=== PATIENT | female | born 1985 | race American Indian/Alaskan Native ===

== ENCOUNTER 2017-05-18 16:00 | Emergency (ER) | payer SELFPAY ==
[2017-05-18] MEDS ORDERED: PROVENTIL IH ONE (16:37)
[2017-05-18] MEDS ORDERED: ZOFRAN ODT PO ONE (16:38)
[2017-05-18] MEDS ORDERED: DELTASONE ONE (16:47)
[2017-05-18] MEDS ORDERED: DELTASONE PO ONE (16:51)
[2017-05-18 17:27] LABS: Hematocrit 39.2 % (30.3-42.9); Hemoglobin 13.4 gm/dl (10.1-14.3); Mean Corpuscular HGB Conc 34 % (30-34); Mean Corpuscular Hemoglobin 31 pg (28-32); Mean Corpuscular Volume 92 fl (79-97); Platelet Count 274 K/mm3 (140-440); Red Blood Count 4.27 M/mm3 (3.65-5.03); Red Cell Distribution Width 14.9 % (13.2-15.2)
[2017-05-18 17:38] LABS: BUN/Creatinine Ratio 17; Blood Urea Nitrogen 10 mg/dL (7-17); Calcium 9.3 mg/dL (8.4-10.2); Hemolysis Index 12
--- NOTE | 2017-05-18 19:02 | Emergency Department Report ---
Upper Respiratory HPI - HPI Chief Complaint: Adult Asthma Stated Complaint: ASTHMA Time Seen by Provider: 05/18/17 18:53 Duration: 3 Days URI Symptoms: Rhinorrhea: Yes, Sore Throat: Yes, Ear Pain: Yes, Cough: Yes, Shortness of Breath: No, Sick Contacts: Yes, Unable to Take Fluids: No, Urine Output Abnormal: No, Listless Behavior: No - Home Meds and Allergies Home Medications: Previous Rx's Medication Instructions Recorded Last Taken Type ALBUTEROL Inhaler [ProAir HFA 2 puff IH QID PRN #1 inhalation 05/18/17 Unknown Rx Inhaler] Acetaminophen 1,000 mg PO QID #30 tablet 05/18/17 Unknown Rx Azithromycin [Zithromax Z-PURNIMA] 250 mg PO DAILY #6 tablet 05/18/17 Unknown Rx Loratadine 10 mg PO DAILY #30 tablet 05/18/17 Unknown Rx predniSONE [Deltasone] 40 mg PO QDAY #10 tab 05/18/17 Unknown Rx Allergies/Adverse Reactions: Allergies Allergy/AdvReac Type Severity Reaction Status Date / Time No Known Allergies Allergy Unverified 05/18/17 16:36 ED Review of Systems ROS: Stated complaint: ASTHMA Other details as noted in HPI Constitutional: denies: chills, fever Eyes: denies: eye pain, eye discharge, vision change ENT: ear pain, throat pain, congestion Respiratory: cough, wheezing. denies: shortness of breath Cardiovascular: denies: chest pain, palpitations Endocrine: no symptoms reported Gastrointestinal: denies: abdominal pain, nausea, diarrhea Genitourinary: denies: urgency, dysuria, discharge Musculoskeletal: denies: back pain, joint swelling, arthralgia Skin: denies: rash, lesions Neurological: denies: headache, weakness, paresthesias Psychiatric: denies: anxiety, depression Hematological/Lymphatic: denies: easy bleeding, easy bruising ED Past Medical Hx - Past Medical History Hx Asthma: Yes - Social History Smoking Status: Never Smoker Substance Use Type: None - Medications Home Medications: Home Medications Medication Instructions Recorded Confirmed Last Taken Type ALBUTEROL Inhaler [ProAir HFA 2 puff IH QID PRN #1 inhalation 05/18/17 Unknown Rx Inhaler] Acetaminophen 1,000 mg PO QID #30 tablet 05/18/17 Unknown Rx Azithromycin [Zithromax Z-PURNIMA] 250 mg PO DAILY #6 tablet 05/18/17 Unknown Rx Loratadine 10 mg PO DAILY #30 tablet 05/18/17 Unknown Rx predniSONE [Deltasone] 40 mg PO QDAY #10 tab 05/18/17 Unknown Rx ED Bronchiolitis Physical Exam - Exam General: Vital signs noted. No distress. Alert and acting appropriately. HEENT: Yes Pharyngeal Erythema, Yes Rhinorrhea, No Conjuctival Injection, No Dry Mucous Membranes Ear: Both TM Erythema, Neither TM Bulge, Neither EAC Discharge Neck: No Adenopathy, No Rigidity Lungs: Yes Clear Lung Sounds, Yes Good Air Exchange, Yes Cough, No Wheezes, No Stridor, No Nasal Flaring, No Retractions Heart: Yes Regular, No Murmur Abdomen: Yes Normal Bowel Sounds, No Tenderness, No Peritoneal Signs Skin: No Rash, No Eczema Neurologic: Alert and oriented, no deficits. Musculoskeletal: Unremarkable. Treatments - Treaments Treatment: Improved Albuterol ED Physical Exam - General Limitations: No Limitations ED Course Vital Signs 05/18/17 16:33 Temperature 98.5 F Pulse Rate 119 H Respiratory 26 H Rate Blood Pressure 161/79 O2 Sat by Pulse 100 Oximetry ED Medical Decision Making - Lab Data Result diagrams: 05/18/17 17:10 05/18/17 17:10 - Medical Decision Making Patient is a 32-year-old -[place] female with history of asthma patient states out of albuterol for last 2 months arrived [place] the [place] 2 weeks ago cough and congestion started at that time now with rhinorrhea cough congestion and nocturnal wheezing there is no fever no chills no nausea vomiting patient states breathing improved after nebs and steroids given in ED patient ambulatory throughout ED without increased shortness of breath or wheezing plan to DC to self in stable condition refill albuterol prednisone taper Z-Purnima and follow with PCP in 2-3 days patient given strict instructions to return to ED if symptoms worsen patient verbalizes understanding and agreement with discharge plan. repeat vital signs at this time : 98. 7 t, r: 18, bp: 124/78, O2 sat: 98% Critical care attestation.: If time is entered above; I have spent that time in minutes in the direct care of this critically ill patient, excluding procedure time. ED Disposition Clinical Impression: Bronchitis Disposition: DC-01 TO HOME OR SELFCARE Is pt being admited?: No Does the pt Need Aspirin: No Condition: Good Instructions: Chronic Bronchitis (ED) Prescriptions: Acetaminophen 1,000 mg PO QID #30 tablet ALBUTEROL Inhaler [ProAir HFA Inhaler] 2 puff IH QID PRN #1 inhalation PRN Reason: Shortness Of Breath Azithromycin [Zithromax Z-PURNIMA] 250 mg PO DAILY #6 tablet Loratadine 10 mg PO DAILY #30 tablet predniSONE [Deltasone] 40 mg PO QDAY #10 tab Referrals: STEVEN NUR MD [Staff Physician] - 3-5 Days Forms: Work/School Release Form(ED) Time of Disposition: 19:45
[2017-05-19 01:11] VITALS: BP 124/78
== END 2017-05-18 19:50 | disposition home or self-care (01) ==
LOC: ED 16:00
DX: J42 Unspecified chronic bronchitis (principal); Z79.899 Other long term (current) drug therapy
CPT/HCPCS: 36415; 80048; 85027; 99283; J7512; Q0162

== ENCOUNTER 2017-12-04 09:48 | Inpatient (IN) | payer MEDICAID ==
[2017-12-04] MEDS ORDERED: LACTATED RINGERS 1,000 ML ONE (10:24)
[2017-12-04] MEDS ORDERED: ePHEDrine SULFATE IV PRN (10:28)
[2017-12-04] MEDS ORDERED: BRETHINE SUB-Q PRN (10:28)
--- NOTE | 2017-12-04 10:44 | History and Physical Report ---
History of Present Illness Date of examination: 12/04/17 Date of admission: 12/04/17 10:19 Chief complaint: Labor History of present illness: 32 year old presents to L&D in active labor. Patient states her contractions began at 06:00 this morning. Patient denies VB or LOF. Patient reports active movement. Patient denies complications with this . She states she has been receiving care at [place]; no records are available. Pt. states she has had 3 previous vaginal deliveries and a miscarriage. EDC 12/05/17 ; EGA 39 weeks, 6 days gestation. Patient denies health problems except for asthma for which she rarely uses an inhaler. labs drawn today upon admission. 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 denies: gonorrhea, hepatitis B, hepatitis C, herpes, HIV, syphilis Family/Genetic History: diabetes, hypertension, cancer Social history: lives with family, full code. denies: smoking, alcohol abuse, prescription drug abuse, IV drug use - Obstetrical History Expected Date of Delivery: 12/05/17 Actual Gestation: 39 Week(s) 6 Day(s) : 5 Para: 3 Hx # Term Pregnancies: 4 Number of Pregnancies: 0 Spontaneous Abortions: 1 Induced : 0 Number of Living Children: 3 Medications and Allergies Allergies Allergy/AdvReac Type Severity Reaction Status Date / Time No Known Allergies Allergy Unverified 05/18/17 16:36 Home Medications Medication Instructions Recorded Confirmed Last Taken Type ALBUTEROL Inhaler [ProAir HFA 2 puff IH QID PRN #1 inhalation 05/18/17 Unknown Rx Inhaler] Acetaminophen 1,000 mg PO QID #30 tablet 05/18/17 Unknown Rx Azithromycin [Zithromax Z-PURNIMA] 250 mg PO DAILY #6 tablet 05/18/17 Unknown Rx Loratadine 10 mg PO DAILY #30 tablet 05/18/17 Unknown Rx predniSONE [Deltasone] 40 mg PO QDAY #10 tab 05/18/17 Unknown Rx Active Meds: Active Medications Ephedrine Sulfate (Ephedrine Sulfate) 10 mg IV Q2M PRN PRN Reason: Hypotension Fentanyl (Sublimaze) 100 mcg IV Q2H PRN PRN Reason: Labor Pain Ampicillin Sodium (Polycillin/Ns 2 Gm/100 Ml) 2 gm in 100 mls @ 100 mls/hr IV ONCE ONE; Protocol Stop: 12/04/17 11:27 Lactated Ringer's (Lactated Ringers) 1,000 mls @ 125 mls/hr IV DIRECT JR Oxytocin/Sodium Chloride (Pitocin/Ns 20 Unit/1000ml Drip) 20 units in 1,000 mls @ 125 mls/hr IV DIRECT JR Ampicillin Sodium (Ampicillin/Ns 1 Gm/50 Ml) 1 gm in 50 mls @ 100 mls/hr IV Q4HR JR; Protocol Terbutaline Sulfate (Brethine) 0.25 mg SUB-Q ONCE PRN PRN Reason: Hyperstimulation/Hypertonicity Review of Systems All systems: negative (labor) - Vital Signs Vital signs: Vital Signs Temp Resp 98.7 F 18 12/04/17 10:16 12/04/17 10:16 Temp Pulse Resp BP Pulse Ox 97.4 F L 75 18 133/83 94 12/04/17 10:38 12/04/17 10:42 12/04/17 10:38 12/04/17 10:42 12/04/17 10:39 - Physical Exam Breasts: Positive: deferred Cardiovascular: Regular rate, Normal S1, Normal S2 Lungs: Positive: Clear to auscultation Abdomen: Positive: normal appearance, soft. Negative: tenderness, guarding, rigidity Vagina: Positive: normal moisture Cervix: Positive: other (5/80/-2) Uterus: Positive: enlarged. Negative: tender Anus/Rectum: Positive: normal perianal skin Extremities: Positive: normal. Negative: tenderness, edema - Obstetrical FHR: category 1 Uterine Contraction Monitor Mode: External Cervical Dilatation: 5 Cervical Effacement Percentage: 80 station: -2 Uterine Contraction Pattern: Regular Uterine Contraction Intensity: Moderate Results All other labs normal. Assessment and Plan A: at 39 weeks, 6 days gestation. Active labor. Unknown GBS. P: GBS prophylaxis. Anticipate . Zithromax 1 gram to treat chlamydia.
[2017-12-04] MEDS ORDERED: PITOCin/NS 20 UNIT/1000ML DRIP 20 UNITS/1,000 ML BAG IV SCH (11:00)
[2017-12-04] MEDS ORDERED: LACTATED RINGERS 1,000 ML IV SCH (11:00)
[2017-12-04] MEDS ORDERED: POLYCILLIN/NS 2 GM/100 ML 2 GM/100 ML BAG IV ONE (11:00)
[2017-12-04] MEDS: SUBLIMAZE IV PRN ×2 (11:08→13:26)
[2017-12-04 11:10] LABS: Hematocrit 33.4 % (30.3-42.9); Mean Corpuscular HGB Conc 36 % (30-34); Mean Corpuscular Hemoglobin 31 pg (28-32); Mean Corpuscular Volume 85 fl (79-97); Platelet Count 295 K/mm3 (140-440); Red Blood Count 3.92 M/mm3 (3.65-5.03); Red Cell Distribution Width 16.1 % (13.2-15.2)
[2017-12-04 11:34] LABS: Rubella IgG Antibody Immune (Immune)
[2017-12-04] MEDS ORDERED: ZITHROMAX 1,000 MG in NACL 0.9% 250ML 250 ML IV ONE (12:00)
[2017-12-04 12:38] LABS: Hepatitis C Virus Antibody Non-Reactive (NonReactive)
[2017-12-04] MEDS ORDERED: ZOFRAN IV PRN ×2 (13:32→16:06)
[2017-12-04] MEDS ORDERED: AMPICILLIN/NS 1 GM/50 ML 1 GM/50 ML BAG IV SCH (15:00)
[2017-12-04] MEDS ORDERED: MILK OF MAGNESIA PO PRN (16:06)
[2017-12-04] MEDS ORDERED: PHENERGAN PR PRN (16:06)
[2017-12-04] MEDS ORDERED: TUCKS PAD TP PRN (16:06)
[2017-12-04] MEDS ORDERED: PHENERGAN PO PRN (16:06)
[2017-12-04] MEDS ORDERED: LANSINOH TP PRN (16:06)
[2017-12-04] MEDS ORDERED: DULCOLAX PR PRN (16:06)
[2017-12-04] MEDS ORDERED: BENADRYL PO PRN (16:06)
--- NOTE | 2017-12-04 16:15 | Procedure Note ---
OB Delivery Note - Delivery Date of Delivery: 12/04/17 Surgeon: ROSMERY ALBRIGHT Estimated blood loss: 300cc - Vaginal Delivery presentation: vertex Delivery position: OA Intrapartum events: shoulder dystocia Delivery induction: none Delivery augmentation: rupture of membranes Delivery monitor: external FHT, external uterine Route of delivery: Delivery placenta: spontaneous Delivery cord: 3 umbilical vessels Episiotomy: none Delivery laceration: none Anesthesia: none Delivery comments: of liveborn male TRAV over intact perineum weighing 8 lb 15 oz with apgars of 7/9. Turtle sign noted upon delivery of head at 15:03. Left anterior shoulder dystocia noted. Immediately called for additional help including retail sales professional and NICU as well as additional nurses. Juan position instituted and delivery of posterior shoulder was accomplished with resolution of shoulder dystocia at 15:05. Baby taken immediately to radiant warmer where blow by oxygen was given and baby was assessed by NICU team. Spontaneous delivery of intact placenta and membranes by sears mechanism. EBL 300 cc. Pitocin to IV fluids after delivery of placenta. Fundus firm and midline. Vaginal sweep negative. No lacerations noted. Sponge count correct. Mother and baby stable in birthing room. Patient plans to breastfeed.
[2017-12-04] MEDS ORDERED: SODIUM CHLORIDE FLUSH SYRINGE 10 ML IV NR (17:00)
[2017-12-04] MEDS: MOTRIN PO SCH (22:20)
[2017-12-05 08:29] LABS: Hematocrit 31.1 % (30.3-42.9); Hemoglobin 10.3 gm/dl (10.1-14.3)
--- NOTE | 2017-12-05 08:49 | Progress Note ---
Assessment and Plan A: day 1 S/P . Anemia. P: Supplement with iron. Anticipate discharge tomorrow. Subjective - Subjective Date of service: 12/05/17 Principal diagnosis: day 1 S/P Interval history: day 1 S/P . Patient is doing well. She reports small amount of lochia. She denies pain. Patient is voiding without difficulty. She is ambulating well. She is tolerating a regular diet. Patient denies headache, cough, shortness of breath, abdominal pain, leg pain, heavy vaginal bleeding, or any other symptoms. Patient wants to use Depo Provera for contraception at hospital discharge. She states she has used this method in the past without adverse effects. Patient reports: appetite normal, voiding normally, pain well controlled, ambulating normally [place]: doing well Objective - Vital Signs Latest vital signs: Vital Signs Temp Pulse Resp BP BP Pulse Ox 12/05/17 01:15 98.3 F 46 L 20 128/73 97 12/04/17 21:30 98.7 F 56 L 20 117/60 99 12/04/17 17:53 98.1 F 62 18 116/88 12/04/17 16:40 75 18 134/70 12/04/17 16:39 75 134/70 12/04/17 16:25 67 18 132/70 12/04/17 16:24 67 132/70 12/04/17 16:10 58 L 18 126/67 12/04/17 16:09 58 L 126/67 12/04/17 15:55 75 18 129/81 129/81 12/04/17 15:40 72 18 122/60 12/04/17 15:39 72 122/60 18 15:25 78 97 12/04/17 15:24 77 123/59 12/04/17 15:20 97.4 F L 77 18 123/59 97 12/04/17 14:55 81 86 12/04/17 14:54 78 L 12/04/17 14:50 76 99 12/04/17 14:48 94 H 89 12/04/17 14:45 75 97 12/04/17 14:40 93 H 98 12/04/17 14:38 81 94 12/04/17 14:35 81 92 12/04/17 14:33 94 H 92 07/21/18 14:30 95 H 95 18 14:25 74 92 0718 14:20 80 93 0718 14:15 87 92 18 14:14 75 92 0718 14:10 75 95 0718 14:08 89 92 18 14:05 70 94 18 14:01 78 93 12/04/17 14:00 86 98 12/04/17 13:55 76 91 18 13:50 75 99 18 13:49 73 94 18 13:45 83 92 18 13:42 81 91 18 13:40 91 H 92 12/04/17 13:36 95 H 94 12/04/17 13:35 102 H 95 18 13:30 72 94 18 13:28 70 97 18 13:26 18 12/04/17 13:23 74 96 12/04/17 13:18 82 100 12/04/17 13:13 78 99 18 13:12 86 84 12/04/17 13:08 83 98 18 13:03 79 98 18 12:58 76 98 18 12:53 79 133/72 98 18 12:52 107 H 86 18 12:51 96.8 F L 73 18 133/72 100 18 12:48 92 H 99 12/04/17 12:44 73 94 18 12:43 82 99 18 12:38 96 H 96 18 12:33 109 H 97 18 12:32 85 93 18 12:28 75 95 18 12:23 87 96 18 12:22 72 91 18 12:18 69 97 18 12:14 71 94 18 12:13 69 98 18 12:09 67 94 18 12:08 68 95 18 12:03 66 132/67 95 18 12:02 72 94 12/04/17 11:59 97.0 F L 64 18 132/67 96 12/04/17 11:58 67 95 12/04/17 11:53 77 95 12/04/17 11:48 82 97 12/04/17 11:43 102 H 97 12/04/17 11:38 86 94 12/04/17 11:37 72 94 12/04/17 11:33 77 92 12/04/17 11:30 86 93 12/04/17 11:28 71 96 12/04/17 11:24 77 92 12/04/17 11:23 81 95 12/04/17 11:18 84 95 12/04/17 11:13 90 95 12/04/17 11:08 73 18 98 12/04/17 11:03 76 100 12/04/17 10:58 88 96 12/04/17 10:53 90 96 12/04/17 10:49 75 91 12/04/17 10:48 68 99 12/04/17 10:43 75 97 12/04/17 10:42 75 133/83 12/04/17 10:39 82 94 12/04/17 10:38 97.4 F L 75 18 133/83 97 12/04/17 10:16 98.7 F 18 Intake and Output 12/04/17 12/05/17 12/05/17 23:59 07:59 15:59 Intake Total 240 480 Output Total 600 500 Balance -360 -20 Intake: Oral 240 480 Output: Urine 600 500 Void 600 500 Other: Total, Intake Amount 240 240 Total, Output Amount 600 500 # Voids Void 1 - Exam Breasts: Present: deferred Cardiovascular: Present: Regular rate, Normal S1, Normal S2 Lungs: Present: Clear to auscultation Abdomen: Present: normal appearance, soft, normal bowel sounds. Absent: distention, tenderness, guarding, rigidity Uterus: Present: normal, firm, fundal height below umbilicus. Absent: bogginess , tenderness Extremities: Present: normal. Absent: tenderness, edema - Labs Labs: Abnormal lab results 12/04/17 12/04/17 Range/Units 10:45 10:45 WBC 11.3 H (4.5-11.0) K/mm3 MCHC 36 H (30-34) % RDW 16.1 H (13.2-15.2) % Crossmatch See Detail
[2017-12-05] MEDS: FEOSOL PO SCH ×2 (10:00→21:51)
[2017-12-05] MEDS ORDERED: ZITHROMAX PO ONE (11:00)
[2017-12-05] MEDS ORDERED: PNEUMOVAX 23 IM ONE (12:00)
[2017-12-05] MEDS: MOTRIN PO SCH ×3 (12:00→23:40)
[2017-12-05] MEDS: TYLENOL PO PRN (16:22)
[2017-12-06] MEDS ORDERED: BOOSTRIX IM ONE (06:00)
[2017-12-06] MEDS: MOTRIN PO SCH (06:10)
--- NOTE | 2017-12-06 07:39 | Progress Note ---
Assessment and Plan A: day 2. Anemia. P: Discharge patient home today. Discussed with patient discharge instructions and warning signs. Patient to receive Depo Provera 150 mg IM prior to hospital discharge. The following Rx were [email or web address] [place]: Motrin 800 mg, #30, 1 po every 8 hours prn pain, 0 RF; Vitamin, #30, 1 po daily, 6 RF; Ferrous Sulfate 325 mg, #60, 1 po BID, 1 RF; Colace 100 mg, #60, 1 po BID prn, 1 RF. Advised patient to follow up with [facility] in 6 weeks for exam. Pt. voiced understanding. Subjective - Subjective Principal diagnosis: day 2 S/P Interval history: day 2 S/P . Patient is doing well. She reports small amount of lochia. Patient is voiding without difficulty. She is ambulating well. She is tolerating a regular diet without nausea or vomiting. Patient denies headache, cough, shortness of breath, chest pain, abdominal pain , leg pain, heavy vaginal bleeding, depression, or any other symptoms. Patient wants to use Depo Provera for contraception at hospital discharge. She states she has used this method in the past without adverse effects. Patient reports: appetite normal, voiding normally, pain well controlled, ambulating normally [place]: doing well Objective - Vital Signs Latest vital signs: Vital Signs Temp Pulse Resp BP 12/06/17 00:05 98.2 F 68 18 109/61 12/05/17 18:05 18 12/05/17 17:03 98.5 F 63 18 115/65 12/05/17 16:22 18 12/05/17 12:00 98.7 F 64 18 92/48 12/05/17 08:00 98.5 F 60 20 116/66 Intake and Output 12/05/17 12/05/17 12/06/17 15:59 23:59 07:59 Intake Total 360 120 360 Output Total 1450 Balance 360 -1330 360 Intake: Oral 360 120 360 Output: Urine 1450 Void 1450 Other: Total, Intake Amount 120 120 360 Total, Output Amount 900 # Voids Void 1 3 - Exam Cardiovascular: Present: Regular rate, Normal S1, Normal S2, No murmurs Lungs: Present: Clear to auscultation Abdomen: Present: normal appearance, soft. Absent: distention, tenderness, guarding, rigidity Uterus: Present: normal, firm, fundal height below umbilicus. Absent: bogginess , tenderness Extremities: Present: normal. Absent: tenderness, edema
--- NOTE | 2017-12-06 07:43 | Discharge Summary ---
Providers - Providers Date of Admission: 12/04/17 10:19 Date of discharge: 12/06/17 Attending physician: Dr. Olson None Primary care physician: Dr. Ginny Jerome Hospitalization Reason for admission: active labor Delivery: Episiotomy: none Laceration: none Other procedures: none complications: none Discharge diagnosis: IUP at term delivered [place] baby: male Pertinent studies: Labs Hospital course: Normal course Condition at discharge: Good Disposition: DC-01 TO HOME OR SELFCARE Plan - Provider Discharge Summary Activity: routine, no sex for 6 weeks, no heavy lifting 4 weeks, no strenuous exercise Diet: routine Instructions: routine Additional instructions: Call your doctor immediately for: * Fever > 100.5 * Heavy vaginal bleeding ( >1 pad per hour) * Severe persistent headache * Shortness of breath * Reddened, hot, painful area to leg or breast - Follow up plan Follow up: MAXIM BURRIS MD [Primary Care Provider] - 6 Weeks
[2017-12-06] MEDS ORDERED: DEPO-PROVERA (CONTRACEPTION) IM NR (08:00)
[2017-12-06 09:24] VITALS: BP 99/54
[2017-12-06] MEDS: FEOSOL PO SCH (09:57)
[2017-12-06] MEDS: TYLENOL PO PRN (09:57)
== END 2017-12-06 11:40 | disposition home or self-care (01) | DRG 774 ==
LOC: TRG 09:48 → LD 10:19 → OB 17:10
PROVIDERS: ADMIT Obstetrics & Gynecology; ATTEND Obstetrics & Gynecology
PROC: 10E0XZZ Delivery of Products of Conception, External Approach (ICD-10-PCS; principal; 2017-12-04)
PROC: 3E0234Z Introduction of Serum, Toxoid and Vaccine into Muscle, Percutaneous Approach (ICD-10-PCS; 2017-12-05)
DX: O66.0 Obstructed labor due to shoulder dystocia (principal); O98.82 Other maternal infectious and parasitic diseases complicating childbirth; O99.52 Diseases of the respiratory system complicating childbirth; Z3A.39 39 weeks gestation of pregnancy; Z37.0 Single live birth; Z23 Encounter for immunization; J45.909 Unspecified asthma, uncomplicated; Z83.3 Family history of diabetes mellitus; Z82.49 Family history of ischemic heart disease and other diseases of the circulatory system; Z80.9 Family history of malignant neoplasm, unspecified; O99.02 Anemia complicating childbirth; D64.9 Anemia, unspecified
CPT/HCPCS: 36415; 83036; 85014; 85018; 85027; 86592; 86706; 86762; 86803; 86850; 86870; 86900; 86901; 87806; 90715; A6250; J0290; J0456; J1050; J2405; J2590; J3010; J7050; J7120

== ENCOUNTER 2017-12-13 04:39 | Emergency (ER) | payer MEDICAID ==
[2017-12-13 05:24] LABS: Basophils % (Auto) 0.5 % (0.0-1.8); Eosinophils # (Auto) 0.2 K/mm3 (0.0-0.4); Eosinophils % (Auto) 3.7 % (0.0-4.3); Hematocrit 38.8 % (30.3-42.9); Hemoglobin 12.8 gm/dl (10.1-14.3); Lymphocytes # (Auto) 2.4 K/mm3 (1.2-5.4); Lymphocytes % (Auto) 41.1 % (13.4-35.0); Mean Corpuscular HGB Conc 33 % (30-34); Mean Corpuscular Hemoglobin 29 pg (28-32); Mean Corpuscular Volume 88 fl (79-97); Monocytes # (Auto) 0.5 K/mm3 (0.0-0.8); Platelet Count 442 K/mm3 (140-440); Red Blood Count 4.44 M/mm3 (3.65-5.03); Red Cell Distribution Width 17.3 % (13.2-15.2)
[2017-12-13 06:07] LABS: Alanine Aminotransferase 19 units/L (7-56); Albumin 3.9 g/dL (3.9-5); BUN/Creatinine Ratio 18; Blood Urea Nitrogen 14 mg/dL (7-17); Calcium 9.1 mg/dL (8.4-10.2); Hemolysis Index 1
[2017-12-13 09:09] VITALS: BP 132/83
[2017-12-13] MEDS ORDERED: PERCOCET 5/325 PO ONE (10:39)
[2017-12-13] MEDS ORDERED: TORADOL IV ONE (10:39)
--- NOTE | 2017-12-13 10:43 | Emergency Department Report ---
ED Back Pain/Injury HPI - General Chief Complaint: Back Pain/Injury Stated Complaint: left side/neck pain Time Seen by Provider: 12/13/17 10:24 Source: patient Mode of arrival: Wheelchair Limitations: Physical Limitation - History of Present Illness Initial Comments: 32 yo female with a past medical history of asthma and previous appendectomy presents complaining of left-sided back pain and left hip pain since attempted epidural for delivery on 12/04/2017. Patient had pain while in the hospital. She was expecting it to improve with the time. Instead pain has gradually worsened and not alleviated with prescribed Motrin. Pain is rated at 10/10 in intensity, constant, aching, worse with movement and palpation. Patient has tingling in her toes when sitting in one position for a long time but denies cough paresthesias or leg weakness. No fever, dysuria, nausea, or vomiting reported. Patient is breast feeding. 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 Yobani Aguilera - Related Data Previous Rx's Medication Instructions Recorded Last Taken Type ALBUTEROL Inhaler [ProAir HFA 2 puff IH QID PRN #1 inhalation 05/18/17 Unknown Rx Inhaler] Acetaminophen 1,000 mg PO QID #30 tablet 05/18/17 Unknown Rx Azithromycin [Zithromax Z-PURNIMA] 250 mg PO DAILY #6 tablet 05/18/17 Unknown Rx Loratadine 10 mg PO DAILY #30 tablet 05/18/17 Unknown Rx predniSONE [Deltasone] 40 mg PO QDAY #10 tab 05/18/17 Unknown Rx HYDROcodone/APAP 5-325 [[place] 1 each PO Q6HR PRN #20 tablet 12/13/17 Unknown Rx 5/325] Allergies Allergy/AdvReac Type Severity Reaction Status Date / Time No Known Allergies Allergy Unverified 05/18/17 16:36 ED Review of Systems ROS: Stated complaint: left side/neck pain Other details as noted in HPI Comment: All other systems reviewed and negative ED Past Medical Hx - Past Medical History Hx Hypertension: No Hx Congestive Heart Failure: No Hx Diabetes: No Hx Deep Vein Thrombosis: No Hx Renal Disease: No Hx Sickle Cell Disease: No Hx Seizures: No Hx Asthma: Yes (LAST USED INHALER 05/2017) Hx COPD: No Hx HIV: No - Surgical History Hx Appendectomy: Yes - Social History Smoking Status: Never Smoker Substance Use Type: None - Medications Home Medications: Home Medications Medication Instructions Recorded Confirmed Last Taken Type ALBUTEROL Inhaler [ProAir HFA 2 puff IH QID PRN #1 inhalation 05/18/17 12/04/17 Unknown Rx Inhaler] Acetaminophen 1,000 mg PO QID #30 tablet 05/18/17 12/04/17 Unknown Rx Azithromycin [Zithromax Z-PURNIMA] 250 mg PO DAILY #6 tablet 05/18/17 12/04/17 Unknown Rx Loratadine 10 mg PO DAILY #30 tablet 05/18/17 12/04/17 Unknown Rx predniSONE [Deltasone] 40 mg PO QDAY #10 tab 05/18/17 12/04/17 Unknown Rx HYDROcodone/APAP 5-325 [[place] 1 each PO Q6HR PRN #20 tablet 12/13/17 Unknown Rx 5/325] ED Physical Exam - General Limitations: Physical Limitation - Other Other exam information: General: No limitations, patient is alert in no acute distress Head exam: Atraumatic, normocephalic Eyes exam: Normal appearance ENT: Moist mucous membrane, normal oropharynx Neck exam: Normal inspection, full range of motion, no meningismus nontender Respiratory exam: Clear to auscultation bilateral, no wheezes, rales, crackles Cardiovascular: Normal rate and rhythm, normal heart sounds Abdomen: Soft, nondistended, and nontender, with normal bowel sounds, no rebound, or guarding Extremity: Full range of motion normal inspection no deformity Back: Patient unable to sit up in bed due to significant pain in the left lower back that is also tender with palpation. Neurologic: Alert, oriented x3, cranial nerves intact, no motor or sensory deficit Psychiatric: normal affect, normal mood Skin: Warm, dry, intact ED Course Vital Signs 12/13/17 12/13/17 12/13/17 04:59 08:59 09:00 Temperature 99.1 F Pulse Rate 72 60 Respiratory 16 16 18 Rate Blood Pressure 138/86 132/83 O2 Sat by Pulse 99 98 Oximetry 12/13/17 12/13/17 09:08 11:25 Temperature 98.1 F Pulse Rate Respiratory 16 Rate Blood Pressure O2 Sat by Pulse Oximetry - Reevaluation(s) Reevaluation #1: 12/13/17 10:42 Toradol and Percocet 12/13/17 12:53 Pain improved with meds. Pt able to move now and lift legs since pain relieved. ED Medical Decision Making - Lab Data Result diagrams: 12/13/17 05:11 12/13/17 05:11 Lab Results 12/13/17 12/13/17 12/13/17 Range/Units 05:11 05:11 05:11 WBC 5.8 (4.5-11.0) K/mm3 RBC 4.44 (3.65-5.03) M/mm3 Hgb 12.8 (10.1-14.3) gm/dl Hct 38.8 (30.3-42.9) % MCV 88 (79-97) fl MCH 29 (28-32) pg MCHC 33 (30-34) % RDW 17.3 H (13.2-15.2) % Plt Count 442 H (140-440) K/mm3 Lymph % (Auto) 41.1 H (13.4-35.0) % [place] % (Auto) 9.0 H (0.0-7.3) % Eos % (Auto) 3.7 (0.0-4.3) % Baso % (Auto) 0.5 (0.0-1.8) % Lymph # 2.4 (1.2-5.4) K/mm3 Prentiss # 0.5 (0.0-0.8) K/mm3 Eos # 0.2 (0.0-0.4) K/mm3 Baso # 0.0 (0.0-0.1) K/mm3 Seg Neutrophils % 45.7 (40.0-70.0) % Seg Neutrophils # 2.7 (1.8-7.7) K/mm3 Sodium 140 (137-145) mmol/L Potassium 3.9 (3.6-5.0) mmol/L Chloride 102.8 (98-107) mmol/L Carbon Dioxide 23 (22-30) mmol/L Anion Gap 18 mmol/L BUN 14 (7-17) mg/dL Creatinine 0.8 (0.7-1.2) mg/dL Estimated GFR > 60 ml/min BUN/Creatinine Ratio 18 % Glucose 89 (65-100) mg/dL Calcium 9.1 (8.4-10.2) mg/dL Total Bilirubin 0.50 (0.1-1.2) mg/dL AST 14 (5-40) units/L ALT 19 (7-56) units/L Alkaline Phosphatase 80 (35-129) units/L Total Protein 7.4 (6.3-8.2) g/dL Albumin 3.9 (3.9-5) g/dL Albumin/Globulin Ratio 1.1 % HCG, Qual Negative (Negative) Urine Color (Yellow) Urine Turbidity (Clear) Urine pH (5.0-7.0) Ur Specific [place] (1.003-1.030) Urine Protein (Negative) mg/dL Urine Glucose (UA) (Negative) mg/dL Urine Ketones (Negative) mg/dL Urine Blood (Negative) Urine Nitrite (Negative) Urine Bilirubin (Negative) Urine Urobilinogen (<2.0) mg/dL Ur Leukocyte Esterase (Negative) Urine WBC (Auto) (0.0-6.0) /HPF Urine RBC (Auto) (0.0-6.0) /HPF U Epithel Cells (Auto) (0-13.0) /HPF Urine Mucus /HPF //18 Range/Units 12:01 WBC (4.5-11.0) K/mm3 RBC (3.65-5.03) M/mm3 Hgb (10.1-14.3) gm/dl Hct (30.3-42.9) % MCV (79-97) fl MCH (28-32) pg MCHC (30-34) % RDW (13.2-15.2) % Plt Count (140-440) K/mm3 Lymph % (Auto) (13.4-35.0) % Prentiss % (Auto) (0.0-7.3) % Eos % (Auto) (0.0-4.3) % Baso % (Auto) (0.0-1.8) % Lymph # (1.2-5.4) K/mm3 Prentiss # (0.0-0.8) K/mm3 Eos # (0.0-0.4) K/mm3 Baso # (0.0-0.1) K/mm3 Seg Neutrophils % (40.0-70.0) % Seg Neutrophils # (1.8-7.7) K/mm3 Sodium (137-145) mmol/L Potassium (3.6-5.0) mmol/L Chloride (98-107) mmol/L Carbon Dioxide (22-30) mmol/L Anion Gap mmol/L BUN (7-17) mg/dL Creatinine (0.7-1.2) mg/dL Estimated GFR ml/min BUN/Creatinine Ratio % Glucose (65-100) mg/dL Calcium (8.4-10.2) mg/dL Total Bilirubin (0.1-1.2) mg/dL AST (5-40) units/L ALT (7-56) units/L Alkaline Phosphatase (35-129) units/L Total Protein (6.3-8.2) g/dL Albumin (3.9-5) g/dL Albumin/Globulin Ratio % HCG, Qual (Negative) Urine Color Yellow (Yellow) Urine Turbidity Clear (Clear) Urine pH 5.0 (5.0-7.0) Ur Specific [place] 1.014 (1.003-1.030) Urine Protein <15 mg/dl (Negative) mg/dL Urine Glucose (UA) Neg (Negative) mg/dL Urine Ketones Neg (Negative) mg/dL Urine Blood Lg (Negative) Urine Nitrite Neg (Negative) Urine Bilirubin Neg (Negative) Urine Urobilinogen < 2.0 (<2.0) mg/dL Ur Leukocyte Esterase Neg (Negative) Urine WBC (Auto) 2.0 (0.0-6.0) /HPF Urine RBC (Auto) 3.0 (0.0-6.0) /HPF U Epithel Cells (Auto) 1.0 (0-13.0) /HPF Urine Mucus Few /HPF - Medical Decision Making Patient has no signs of infection, kidney stone, or UTI. She does not have any neurologic findings. Pain improved with additional medication. She described on narcotic pain medication in addition to her Motrin in follow with her doctor encouraged - Differential Diagnosis muscle strain, post-epidural pain, radiculopathy, renal colic, UTI Critical Care Time: No Critical care attestation.: If time is entered above; I have spent that time in minutes in the direct care of this critically ill patient, excluding procedure time. ED Disposition Clinical Impression: Back pain, Status post delivery at term Disposition: DC-01 TO HOME OR SELFCARE Is pt being admited?: No Does the pt Need Aspirin: No Condition: Stable Instructions: Back Pain (ED) Additional Instructions: Take the prescribed Motrin and the Mcalister as needed for pain. Follow-up with your doctor. Return if symptoms worsen as indicated by your discharge instructions. Prescriptions: HYDROcodone/APAP 5-325 [Mcalister 5/325] 1 each PO Q6HR PRN #20 tablet PRN Reason: Pain Referrals: your, manager terminal MD [Other] - 2-3 Days PRIMARY CARE,MD [Primary Care Provider] - 3-5 Days Time of Disposition: 13:00
[2017-12-13 12:38] LABS: Bilirubin,Urine NEG (Negative); Blood,Urine LG (Negative); Color,Urine Yellow (Yellow); Mucus,Urine FEW /HPF; Protein,Urine <15 mg/dL mg/dL (Negative); Urobilinogen,Urine < 2.0 mg/dL (<2.0)
== END 2017-12-13 13:45 | disposition home or self-care (01) ==
LOC: ED 04:39
DX: M54.89 Other dorsalgia (principal); M25.552 Pain in left hip; J45.909 Unspecified asthma, uncomplicated
CPT/HCPCS: 36415; 80053; 81001; 84703; 85025; 96374; 99284; J1885

== ENCOUNTER 2019-01-30 22:31 | Emergency (ER) | payer SELFPAY ==
--- NOTE | 2019-01-31 01:21 | Emergency Department Report ---
ED General Adult HPI - General Chief complaint: Extremity Injury, Lower Stated complaint: RT LEG PAIN Time Seen by Provider: 01/31/19 00:35 Source: patient Mode of arrival: Ambulatory Limitations: No Limitations - History of Present Illness Initial comments: This 33-year-old female presents to ED complaining of right lower leg pain for the past month. Patient states that a month ago she started noticing muscle spasms in her right sauceda that is become intermittent. Patient states that pain is localized to her right upper sauceda region close to her knee. Patient states that pain is worsened with lifting her leg. She denies any injury, trauma or falls. Patient states that her doctor given her some 800 Motrin which she is taking with no relief. Denies any other medical problems. -: Gradual, month(s) Improves with: immobilization - Related Data Previous Rx's Medication Instructions Recorded Last Taken Type ALBUTEROL Inhaler (OR & NICU) 2 puff IH QID PRN #1 inhalation 05/18/17 Unknown Rx [ProAir HFA Inhaler] Acetaminophen 1,000 mg PO QID #30 tablet 05/18/17 Unknown Rx Azithromycin [Zithromax Z-PURNIMA] 250 mg PO DAILY #6 tablet 05/18/17 Unknown Rx Loratadine 10 mg PO DAILY #30 tablet 05/18/17 Unknown Rx predniSONE [Deltasone] 40 mg PO QDAY #10 tab 05/18/17 Unknown Rx HYDROcodone/APAP 5-325 [[place] 1 each PO Q6HR PRN #20 tablet 12/13/17 Unknown Rx 5/325] Tizanidine HCl [Zanaflex 4mg CAP] 4 mg PO BID #20 capsule 01/31/19 Unknown Rx Allergies Allergy/AdvReac Type Severity Reaction Status Date / Time No Known Allergies Allergy Unverified 05/18/17 16:36 ED Review of Systems ROS: Stated complaint: RT LEG PAIN Other details as noted in HPI Comment: All other systems reviewed and negative ED Past Medical Hx - Past Medical History Hx Hypertension: No Hx Congestive Heart Failure: No Hx Diabetes: No Hx Deep Vein Thrombosis: No Hx Renal Disease: No Hx Sickle Cell Disease: No Hx Seizures: No Hx Asthma: Yes (LAST USED INHALER 05/2017) Hx COPD: No Hx HIV: No - Surgical History Hx Appendectomy: Yes - Social History Smoking Status: Never Smoker - Medications Home Medications: Home Medications Medication Instructions Recorded Confirmed Last Taken Type ALBUTEROL Inhaler (OR & NICU) 2 puff IH QID PRN #1 inhalation 05/18/17 12/04/17 Unknown Rx [ProAir HFA Inhaler] Acetaminophen 1,000 mg PO QID #30 tablet 05/18/17 12/04/17 Unknown Rx Azithromycin [Zithromax Z-PURNIMA] 250 mg PO DAILY #6 tablet 05/18/17 12/04/17 Unknown Rx Loratadine 10 mg PO DAILY #30 tablet 05/18/17 12/04/17 Unknown Rx predniSONE [Deltasone] 40 mg PO QDAY #10 tab 05/18/17 12/04/17 Unknown Rx HYDROcodone/APAP 5-325 [[place] 1 each PO Q6HR PRN #20 tablet 12/13/17 Unknown Rx 5/325] Tizanidine HCl [Zanaflex 4mg CAP] 4 mg PO BID #20 capsule 01/31/19 Unknown Rx ED Physical Exam - General Limitations: No Limitations General appearance: alert, in no apparent distress - Head Head exam: Present: atraumatic, normocephalic - Eye Eye exam: Present: normal appearance - ENT ENT exam: Present: mucous membranes moist - Neck Neck exam: Present: normal inspection - Respiratory Respiratory exam: Present: normal lung sounds bilaterally. Absent: respiratory distress - Cardiovascular Cardiovascular Exam: Present: regular rate, normal rhythm. Absent: systolic murmur, diastolic murmur, rubs, gallop - GI/Abdominal GI/Abdominal exam: Present: soft, normal bowel sounds - Extremities Exam Extremities exam: Present: normal inspection, full ROM, tenderness (palpation of the right anterior lateral aspect of the upper part of the lower leg. Homans sign negative, no calf tenderness). Absent: joint swelling, calf tenderness - Back Exam Back exam: Present: normal inspection, full ROM - Neurological Exam Neurological exam: Present: alert, oriented X3, CN II-XII intact, other (limping gait from pain. But able to ambulate well) - Psychiatric Psychiatric exam: Present: normal affect, normal mood - Skin Skin exam: Present: warm, dry, intact, normal color. Absent: rash ED Course Vital Signs 01/30/19 22:57 Temperature 98.0 F Pulse Rate 79 Respiratory 16 Rate Blood Pressure 121/82 O2 Sat by Pulse 100 Oximetry ED Medical Decision Making - Medical Decision Making 33-year-old female presents to ED with muscle spasm of the lower leg. ED course: Patient received in ED. Vital signs are normal patient is in no acute distress Discussed with patient follow-up with primary care physician. Discussed the patient to follow up with orthopedic and possibly get an MRI of that right leg. Referrals given. Discussed the patient and take medications as prescribed. Patient has no neurological deficit. Patient is alert and oriented 3 and understands all instructions given. Critical care attestation.: If time is entered above; I have spent that time in minutes in the direct care of this critically ill patient, excluding procedure time. ED Disposition Clinical Impression: Muscle strain, lower leg Disposition: DC- TO HOME OR SELFCARE Is pt being admited?: No Does the pt Need Aspirin: No Condition: Stable Instructions: Muscle Strain (ED), Muscle Spasm (ED) Additional Instructions: Make sure to follow up with the primary care physician as discussed. Take all your medications as you've been prescribed. Follow-up with orthopedic doctor If you have any worsening symptoms or develop new symptoms please return to ED immediately. Prescriptions: Tizanidine HCl [Zanaflex 4mg CAP] 4 mg PO BID #20 capsule Referrals: PRIMARY MD PREETI [Primary Care Provider] - 3-[address] [facility] [place] [Outside] - 3-5 Days RAPHAEL SPEAR MD [Staff Physician] - 3-5 Days [facility] [Provider Group] - 3-5 Days Forms: Work/School Release Form(ED) Time of Disposition: 01:29
[2019-01-31 05:14] VITALS: BP 124/84
== END 2019-01-31 02:00 | disposition home or self-care (01) ==
LOC: ED 22:31
DX: S86.911A Strain of unspecified muscle(s) and tendon(s) at lower leg level, right leg, initial encounter (principal); X58.XXXA Exposure to other specified factors, initial encounter; Y93.89 Activity, other specified; Y92.89 Other specified places as the place of occurrence of the external cause; Y99.8 Other external cause status
CPT/HCPCS: 99282

== ENCOUNTER 2019-10-15 01:55 | Emergency (ER) | payer SELFPAY ==
[2019-10-15 04:02] LABS: Hematocrit 30.2 % (30.3-42.9); Hemoglobin 9.5 gm/dl (10.1-14.3); Mean Corpuscular HGB Conc 31 % (30-34); Platelet Count 419 K/mm3 (140-440); Red Blood Count 4.55 M/mm3 (3.65-5.03)
[2019-10-15 04:04] LABS: Mean Corpuscular Volume 66 fl (79-97); Red Cell Distribution Width 21.6 % (13.2-15.2)
[2019-10-15 04:25] LABS: Alanine Aminotransferase 6 units/L (7-56); Albumin 4.3 g/dL (3.9-5); BUN/Creatinine Ratio 15; Blood Urea Nitrogen 12 mg/dL (7-17); Calcium 9.2 mg/dL (8.4-10.2); Hemolysis Index 0
[2019-10-15 04:41] LABS: Anisocytosis 1+; Basophils % (Manual) 0 % (0.0-1.8); Total Cells Counted 100
[2019-10-15 04:42] LABS: Hypochromasia 1+; Platelet Estimate Consistent w Auto
[2019-10-15 04:43] LABS: Bacteria,Urine 1+ /HPF (Negative); Bilirubin,Urine NEG (Negative); Blood,Urine LG (Negative); Color,Urine Yellow (Yellow); Protein,Urine <15 mg/dL mg/dL (Negative); Urobilinogen,Urine < 2.0 mg/dL (<2.0)
--- NOTE | 2019-10-15 04:49 | Ultrasound Report ---
Pelvic ultrasound with Doppler INDICATION: Vaginal bleeding FINDINGS: The uterus measures 12 x 5 x 7 cm the endometrial thickness of about 11 mm in thickness. So me heterogeneous echogenic material is present within the endometrial stripe without significant incr eased Doppler flow. Both ovaries appeared unremarkable. Minimal free pelvic fluid IMPRESSION: Heterogeneous material along the endometrial stripe likely represents underlying clot. Di fficult to completely exclude retained products of conception given the complexity. Signer Name: Javi Munoz MD Signed: 10/15/2019 4:45 AM Workstation Name: [id number] [employer]
--- NOTE | 2019-10-15 05:04 | Emergency Department Report ---
ED HPI - General Chief complaint: Vaginal Bleeding Stated complaint: VAGINAL BLEEDING Time Seen by Provider: 10/15/19 04:09 Source: patient Mode of arrival: Ambulatory Limitations: No Limitations - History of Present Illness Initial comments: 34-year-old -[place] female patient presents for vaginal bleeding during x today. Patient states she had sudden onset of lower abdominal cramping and heavy vaginal bleeding starting this morning. She reports she has used about 10 pads today, however the bleeding has slowed down significantly. Patient states her last menstrual cycle was 07/13/2019 and that she estimates she is 14 weeks . Patient states she [facility], however she has not had any care to this point due to COVID. She is A0. She rates her current abdominal pain as a 4/10 in severity and states it is intermittent and cramping in nature. She denies any dysuria, hematuria, vaginal discharge, or urinary frequency. Patient also denies any fever/chills/sweats. - Related Data Previous Rx's Medication Instructions Recorded Last Taken Type Acetaminophen 1,000 mg PO QID #30 tablet 05/18/17 Unknown Rx Albuterol INH(or & Nicu Only) 2 puff IH QID PRN #1 inhalation 05/18/17 Unknown Rx [ProAir HFA Inhaler] Azithromycin [Zithromax Z-PURNIMA] 250 mg PO DAILY #6 tablet 05/18/17 Unknown Rx Loratadine 10 mg PO DAILY #30 tablet 05/18/17 Unknown Rx predniSONE [Deltasone] 40 mg PO QDAY #10 tab 05/18/17 Unknown Rx HYDROcodone/APAP 5-325 [[place] 1 each PO Q6HR PRN #20 tablet 12/13/17 Unknown Rx 5/325] Tizanidine HCl [Zanaflex 4mg CAP] 4 mg PO BID #20 capsule 01/31/19 Unknown Rx cephALEXin [Keflex] 500 mg PO Q12HR 5 Days #10 cap 10/15/19 Unknown Rx Allergies Allergy/AdvReac Type Severity Reaction Status Date / Time No Known Allergies Allergy Unverified 05/18/17 16:36 ED Review of Systems ROS: Stated complaint: VAGINAL BLEEDING Other details as noted in HPI Constitutional: denies: chills, fever Respiratory: denies: shortness of breath Cardiovascular: denies: chest pain Gastrointestinal: abdominal pain. denies: nausea, vomiting, diarrhea, constipation Genitourinary: denies: urgency, dysuria, frequency, hematuria, discharge Skin: denies: rash, lesions Neurological: denies: headache Hematological/Lymphatic: denies: easy bleeding, easy bruising ED Past Medical Hx - Past Medical History Previous Medical History?: Yes Hx Hypertension: No Hx Congestive Heart Failure: No Hx Diabetes: No Hx Deep Vein Thrombosis: No Hx Renal Disease: No Hx Sickle Cell Disease: No Hx Seizures: No Hx Asthma: Yes (LAST USED INHALER 05/2017) Hx COPD: No Hx HIV: No - Surgical History Past Surgical History?: Yes Hx Appendectomy: Yes - Social History Smoking Status: Never Smoker Substance Use Type: None - Medications Home Medications: Home Medications Medication Instructions Recorded Confirmed Last Taken Type Acetaminophen 1,000 mg PO QID #30 tablet 05/18/17 12/04/17 Unknown Rx Albuterol INH(or & Nicu Only) 2 puff IH QID PRN #1 inhalation 05/18/17 12/04/17 Unknown Rx [ProAir HFA Inhaler] Azithromycin [Zithromax Z-PURNIMA] 250 mg PO DAILY #6 tablet 05/18/17 12/04/17 Unknown Rx Loratadine 10 mg PO DAILY #30 tablet 05/18/17 12/04/17 Unknown Rx predniSONE [Deltasone] 40 mg PO QDAY #10 tab 05/18/17 12/04/17 Unknown Rx HYDROcodone/APAP 5-325 [[place] 1 each PO Q6HR PRN #20 tablet 12/13/17 Unknown Rx 5/325] Tizanidine HCl [Zanaflex 4mg CAP] 4 mg PO BID #20 capsule 01/31/19 Unknown Rx cephALEXin [Keflex] 500 mg PO Q12HR 5 Days #10 cap 10/15/19 Unknown Rx ED Physical Exam - General Limitations: No Limitations General appearance: alert, in no apparent distress - Head Head exam: Present: atraumatic, normocephalic - Eye Eye exam: Present: normal appearance. Absent: scleral icterus - Respiratory Respiratory exam: Absent: respiratory distress - Cardiovascular Cardiovascular Exam: Present: regular rate, normal rhythm - GI/Abdominal GI/Abdominal exam: Present: soft. Absent: distended, tenderness, guarding, rebound, rigid - Extremities Exam Extremities exam: Present: normal inspection - Back Exam Back exam: Present: normal inspection - Neurological Exam Neurological exam: Present: alert, oriented X3 - Psychiatric Psychiatric exam: Present: normal affect, normal mood - Skin Skin exam: Present: warm, dry, intact, normal color. Absent: rash, diaphoretic, erythema, ecchymosis ED Course Vital Signs 10/15/19 10/15/19 02:26 05:23 Temperature 99.4 F 97.9 F Pulse Rate 90 74 Respiratory 18 18 Rate Blood Pressure 138/92 Blood Pressure 123/77 [Left] O2 Sat by Pulse 100 100 Oximetry ED Medical Decision Making - Lab Data Result diagrams: 10/15/19 03:37 10/15/19 03:37 Lab Results 10/15/19 10/15/19 10/15/19 Range/Units 03:37 03:37 03:37 WBC 5.8 (4.5-11.0) K/mm3 RBC 4.55 (3.65-5.03) M/mm3 Hgb 9.5 L (10.1-14.3) gm/dl Hct 30.2 L (30.3-42.9) % MCV 66 L (79-97) fl MCH 21 L (28-32) pg MCHC 31 (30-34) % RDW 21.6 H (13.2-15.2) % Plt Count 419 (140-440) K/mm3 Add Manual Diff Complete Total Counted 100 Seg Neuts % (Manual) 58.0 (40.0-70.0) % Band Neutrophils % 0 % Lymphocytes % (Manual) 31.0 (13.4-35.0) % Reactive Lymphs % (Man) 0 % Monocytes % (Manual) 3.0 (0.0-7.3) % Eosinophils % (Manual) 8.0 H (0.0-4.3) % Basophils % (Manual) 0 (0.0-1.8) % Metamyelocytes % 0 % Myelocytes % 0 % Promyelocytes % 0 % Blast Cells % 0 % Nucleated RBC % Not Reportable Seg Neutrophils # Man 3.4 (1.8-7.7) K/mm3 Band Neutrophils # 0.0 K/mm3 Lymphocytes # (Manual) 1.8 (1.2-5.4) K/mm3 Abs React Lymphs (Man) 0.0 K/mm3 Monocytes # (Manual) 0.2 (0.0-0.8) K/mm3 Eosinophils # (Manual) 0.5 H (0.0-0.4) K/mm3 Basophils # (Manual) 0.0 (0.0-0.1) K/mm3 Metamyelocytes # 0.0 K/mm3 Myelocytes # 0.0 K/mm3 Promyelocytes # 0.0 K/mm3 Blast Cells # 0.0 K/mm3 WBC Morphology Not Reportable Hypersegmented Neuts Not Reportable Hyposegmented Neuts Not Reportable Hypogranular Neuts Not Reportable Smudge Cells Not Reportable Toxic Granulation Not Reportable Toxic Vacuolation Not Reportable Dohle Bodies Not Reportable Pelger-Huet Anomaly Not Reportable Casey Rods Not Reportable Platelet Estimate Consistent w auto Clumped Platelets Not Reportable Plt Clumps, EDTA Not Reportable Large Platelets Not Reportable Giant Platelets Not Reportable Platelet Satelliting Not Reportable Plt Morphology Comment Not Reportable RBC Morphology Not Reportable Dimorphic RBCs Not Reportable Polychromasia Not Reportable Hypochromasia 1+ Poikilocytosis Not Reportable Anisocytosis 1+ Microcytosis Not Reportable Macrocytosis Not Reportable Spherocytes Not Reportable Pappenheimer Bodies Not Reportable Sickle Cells Not Reportable Target Cells Not Reportable Tear Drop Cells Not Reportable Ovalocytes Not Reportable Helmet Cells Not Reportable Bauer-Ashburn Bodies Not Reportable [place] Rings Not Reportable [place] Cells Not Reportable Bite Cells Not Reportable Crenated Cell Not Reportable Elliptocytes Not Reportable Acanthocytes (Spur) Not Reportable Rouleaux Not Reportable Hemoglobin C Crystals Not Reportable Schistocytes Not Reportable Malaria parasites Not Reportable [place] Bodies Not Reportable Hem Pathologist Commnt No Sodium (137-145) mmol/L Potassium (3.6-5.0) mmol/L Chloride (98-107) mmol/L Carbon Dioxide (22-30) mmol/L Anion Gap mmol/L BUN (7-17) mg/dL Creatinine (0.7-1.2) mg/dL Estimated GFR ml/min BUN/Creatinine Ratio % Glucose (65-100) mg/dL Calcium (8.4-10.2) mg/dL Total Bilirubin (0.1-1.2) mg/dL AST (5-40) units/L ALT (7-56) units/L Alkaline Phosphatase (35-129) units/L Total Protein (6.3-8.2) g/dL Albumin (3.9-5) g/dL Albumin/Globulin Ratio % HCG, Quant 1656 H (0-4) mIU/mL Urine Color (Yellow) Urine Turbidity (Clear) Urine pH (5.0-7.0) Ur Specific [place] (1.003-1.030) Urine Protein (Negative) mg/dL Urine Glucose (UA) (Negative) mg/dL Urine Ketones (Negative) mg/dL Urine Blood (Negative) Urine Nitrite (Negative) Urine Bilirubin (Negative) Urine Urobilinogen (<2.0) mg/dL Ur Leukocyte Esterase (Negative) Urine WBC (Auto) (0.0-6.0) /HPF Urine RBC (Auto) (0.0-6.0) /HPF U Epithel Cells (Auto) (0-13.0) /HPF Urine Bacteria (Auto) (Negative) /HPF Blood Type O POSITIVE 10/15/19 10/15/19 Range/Units 03:37 Unknown WBC (4.5-11.0) K/mm3 RBC (3.65-5.03) M/mm3 Hgb (10.1-14.3) gm/dl Hct (30.3-42.9) % MCV (79-97) fl MCH (28-32) pg MCHC (30-34) % RDW (13.2-15.2) % Plt Count (140-440) K/mm3 Add Manual Diff Total Counted Seg Neuts % (Manual) (40.0-70.0) % Band Neutrophils % % Lymphocytes % (Manual) (13.4-35.0) % Reactive Lymphs % (Man) % Monocytes % (Manual) (0.0-7.3) % Eosinophils % (Manual) (0.0-4.3) % Basophils % (Manual) (0.0-1.8) % Metamyelocytes % % Myelocytes % % Promyelocytes % % Blast Cells % % Nucleated RBC % Seg Neutrophils # Man (1.8-7.7) K/mm3 Band Neutrophils # K/mm3 Lymphocytes # (Manual) (1.2-5.4) K/mm3 Abs React Lymphs (Man) K/mm3 Monocytes # (Manual) (0.0-0.8) K/mm3 Eosinophils # (Manual) (0.0-0.4) K/mm3 Basophils # (Manual) (0.0-0.1) K/mm3 Metamyelocytes # K/mm3 Myelocytes # K/mm3 Promyelocytes # K/mm3 Blast Cells # K/mm3 WBC Morphology Hypersegmented Neuts Hyposegmented Neuts Hypogranular Neuts Smudge Cells Toxic Granulation Toxic Vacuolation Dohle Bodies Pelger-Huet Anomaly Casey Rods Platelet Estimate Clumped Platelets Plt Clumps, EDTA Large Platelets Giant Platelets Platelet Satelliting Plt Morphology Comment RBC Morphology Dimorphic RBCs Polychromasia Hypochromasia Poikilocytosis Anisocytosis Microcytosis Macrocytosis Spherocytes Pappenheimer Bodies Sickle Cells Target Cells Tear Drop Cells Ovalocytes Helmet Cells Bauer-Ashburn Bodies [place] Rings Odalys Cells Bite Cells Crenated Cell Elliptocytes Acanthocytes (Spur) Rouleaux Hemoglobin C Crystals Schistocytes Malaria parasites Diego Bodies Hem Pathologist Commnt Sodium 139 (137-145) mmol/L Potassium 4.0 (3.6-5.0) mmol/L Chloride 101.6 (98-107) mmol/L Carbon Dioxide 22 (22-30) mmol/L Anion Gap 19 mmol/L BUN 12 (7-17) mg/dL Creatinine 0.8 (0.7-1.2) mg/dL Estimated GFR > 60 ml/min BUN/Creatinine Ratio 15 % Glucose 91 (65-100) mg/dL Calcium 9.2 (8.4-10.2) mg/dL Total Bilirubin 0.40 (0.1-1.2) mg/dL AST 13 (5-40) units/L ALT 6 L (7-56) units/L Alkaline Phosphatase 59 (35-129) units/L Total Protein 7.9 (6.3-8.2) g/dL Albumin 4.3 (3.9-5) g/dL Albumin/Globulin Ratio 1.2 % HCG, Quant (0-4) mIU/mL Urine Color Yellow (Yellow) Urine Turbidity Clear (Clear) Urine pH 6.0 (5.0-7.0) Ur Specific [place] 1.013 (1.003-1.030) Urine Protein <15 mg/dl (Negative) mg/dL Urine Glucose (UA) Neg (Negative) mg/dL Urine Ketones Neg (Negative) mg/dL Urine Blood Lg (Negative) Urine Nitrite Neg (Negative) Urine Bilirubin Neg (Negative) Urine Urobilinogen < 2.0 (<2.0) mg/dL Ur Leukocyte Esterase Neg (Negative) Urine WBC (Auto) 44.0 H (0.0-6.0) /HPF Urine RBC (Auto) 38.0 (0.0-6.0) /HPF U Epithel Cells (Auto) 1.0 (0-13.0) /HPF Urine Bacteria (Auto) 1+ (Negative) /HPF Blood Type - Radiology Data Radiology results: report reviewed Pelvic ultrasound with Doppler INDICATION: Vaginal bleeding FINDINGS: The uterus measures 12 x 5 x 7 cm the endometrial thickness of about 11 mm in thickness. Some heterogeneous echogenic material is present within the endometrial stripe without significant increased Doppler flow. Both ovaries appeared unremarkable. Minimal free pelvic fluid IMPRESSION: Heterogeneous material along the endometrial stripe likely represents underlying clot. Difficult to completely exclude retained products of conception given the complexity. - Medical Decision Making Patient presents with complaints of vaginal bleeding during . She estimates she is about 14 weeks , however has not had any care to this point. Patient is to be seen at [facility] next week. CBC shows stable hemoglobin and normal white count. No significant abnormalities noted on CMP. UA is positive for UTI. Beta-hCG levels are 1656. OB Ultrasound shows: Heterogeneous material along the endometrial stripe likely represents underlying clot. Difficult to completely exclude retained products of conception given the complexity. Discussed findings with Dr. Maldonado-recommends patient return to the ED in 2 days for a repeat beta hCG level and OB ultrasound. Patient also informed she may follow-up with her [facility] within 2 days to have these tests performed. Patient's vitals are stable and she is well-appearing. Patient to discharge home. Strict return precautions were discussed in great detail with patient who verbalizes un derstanding. Critical care attestation.: If time is entered above; I have spent that time in minutes in the direct care of this critically ill patient, excluding procedure time. ED Disposition Clinical Impression: Threatened miscarriage UTI (urinary tract infection) Qualifiers: Urinary tract infection type: acute cystitis Hematuria presence: without he maturia Qualified Code(s): N30.00 - Acute cystitis without hematuria Disposition: DC- TO HOME OR SELFCARE Is pt being admited?: No Condition: Stable Instructions: Threatened Miscarriage (ED) Additional Instructions: Please return to the emergency department in 2 days for repeat beta hCG level and ultrasound. You may also follow-up with your [employer] [facility] in 2 days for these tests. Seek immediate emergency treatment if you develop any new or worsening symptoms. Prescriptions: cephALEXin [Keflex] 500 mg PO Q12HR 5 Days #10 cap
[2019-10-15 05:24] VITALS: BP 123/77
== END 2019-10-15 05:23 | disposition home or self-care (01) ==
LOC: ED 01:55
DX: O20.0 Threatened abortion (principal); O23.42 Unspecified infection of urinary tract in pregnancy, second trimester; Z3A.14 14 weeks gestation of pregnancy
CPT/HCPCS: 36415; 76801; 80053; 81001; 84702; 85007; 85025; 86900; 86901; 87086; 99284

== ENCOUNTER 2020-06-04 16:34 | Emergency (ER) | payer SELFPAY ==
[2020-06-04 16:41] VITALS: BP 137/82
[2020-06-04] MEDS ORDERED: ACETAMINOPHEN 325 MG TAB PO ONE ×2 (16:48→21:00)
[2020-06-04] MEDS ORDERED: SODIUM CHLORIDE 0.9% 1000 ML 1,000 ML IV ONE (16:48)
[2020-06-04] MEDS ORDERED: diphenhydrAMINE 50 MG/ML VIAL IV ONE ×2 (16:48→21:00)
[2020-06-04] MEDS ORDERED: METOCLOPRAMIDE 10 MG/2 ML INJ IV ONE ×2 (16:48→21:00)
[2020-06-04 17:52] LABS: Alanine Aminotransferase 13 units/L (7-56); Albumin 3.7 g/dL (3.9-5); Blood Urea Nitrogen 8 mg/dL (7-17); Calcium 8.9 mg/dL (8.4-10.2); Hemolysis Index 0
[2020-06-04 17:58] LABS: BUN/Creatinine Ratio 13
[2020-06-04 17:59] LABS: Basophils % (Auto) 0.3 % (0.0-1.8); Eosinophils # (Auto) 0.1 K/mm3 (0.0-0.4); Eosinophils % (Auto) 1.2 % (0.0-4.3); Hematocrit 32.3 % (30.3-42.9); Hemoglobin 10.6 gm/dl (10.1-14.3); Lymphocytes # (Auto) 2.3 K/mm3 (1.2-5.4); Lymphocytes % (Auto) 25.2 % (13.4-35.0); Mean Corpuscular HGB Conc 33 % (30-34); Mean Corpuscular Volume 77 fl (79-97); Monocytes # (Auto) 0.8 K/mm3 (0.0-0.8); Monocytes % (Auto) 8.5 % (0.0-7.3); Platelet Count 377 K/mm3 (140-440); Red Blood Count 4.19 M/mm3 (3.65-5.03); Red Cell Distribution Width 18.8 % (13.2-15.2)
--- NOTE | 2020-06-04 19:03 | Ultrasound Report ---
ULTRASOUND OBSTETRIC TWIN A Indication: PELVIC PAIN in Findings: There is a twin intrauterine . BPD = 4.7 cm = 20 weeks, 1 day(s). Head circumference = 17.4 cm = 19 weeks, 6 day(s). Abdominal circumference = 14.1 cm = 19 weeks, 2 day(s). Femur length = 2.9 cm = 18 weeks, 6 day(s). Overall estimated sonographic age = 19 weeks, 4 day(s). heart rate is 149 beats per minute. Estimated weight is 282 grams position is cephalic. Cervix appears closed. Cervical length is 4.1 cm. movement is present. Placenta is posterior and grade 0 . Amniotic fluid volume appears normal. Maternal adnexa appear normal. Impression: 1. Single living intrauterine with estimated sonographic age of 19 weeks, 4 day(s). 2. No sonographic abnormality identified. See below for evaluation for twin B ULTRASOUND OBSTETRIC TWIN B Indication: PELVIC PAIN Findings: There is a twin intrauterine . BPD = 4.7 cm = 19 weeks, 6 day(s). Head circumference = 16.8 cm = 19 weeks, 3 day(s). Abdominal circumference = 14.5 cm = 19 weeks, 6 day(s). Femur length = 3.2 cm = 19 weeks, 6 day(s). Overall estimated sonographic age = 19 weeks, 5 day(s). heart rate is 145 beats per minute. Estimated weight is 313 grams position is transverse. Cervix appears closed. movement is present. Placenta is posterior and grade 0 . Amniotic fluid volume appears normal. Maternal adnexa appear normal. Impression: 1. Single living intrauterine with estimated sonographic age of 19 weeks, 5 day(s). 2. No sonographic abnormality identified. Signer Name: Javi Munoz MD Signed: 06/04/2020 6:58 PM Workstation Name: [id number]
--- NOTE | 2020-06-04 19:17 | Emergency Department Report ---
ED General Adult HPI - General Chief complaint: Abdominal Pain Stated complaint: 16 WEEKS PREG; HEADACHE; ABDOMINAL PAIN Time Seen by Provider: 06/04/20 16:48 Source: patient Mode of arrival: Ambulatory Limitations: No Limitations - History of Present Illness Initial comments: Patient is a 35-year-old female presents emergency room complaints of lower a bdominal pain that began a couple of days ago. She states it feels like a cramping sensation. She states that she believes she is approximately 16 weeks based on her last menstrual cycle. She states that she has an upcoming appointment for [facility]IC[employer] SUPERVISOR but has not yet had an ultrasound performed. She states that she is also had a mild right-sided headache for the last 3 days. She has not been taking any medications for it. She denies any nausea, vomiting, diarrhea, fever, vaginal bleeding, abnormal vaginal discharge, urinary symptoms, vision changes, numbness, weakness, leg swelling, any other symptoms. To the past medical history of asthma. No allergies medications. /P: 4/A: 1 - Related Data Previous Rx's Medication Instructions Recorded Last Taken Type Acetaminophen 1,000 mg PO QID #30 tablet 05/18/17 Unknown Rx Albuterol Mdi (or & Nicu Only) 2 puff IH QID PRN #1 inhalation 05/18/17 Unknown Rx [ProAir HFA Inhaler] Azithromycin [Zithromax Z-PURNIMA] 250 mg PO DAILY #6 tablet 05/18/17 Unknown Rx Loratadine 10 mg PO DAILY #30 tablet 05/18/17 Unknown Rx predniSONE [Deltasone] 40 mg PO QDAY #10 tab 05/18/17 Unknown Rx HYDROcodone/APAP 5-325 [[place] 1 each PO Q6HR PRN #20 tablet 12/13/17 Unknown Rx 5/325] Tizanidine HCl [Zanaflex 4mg CAP] 4 mg PO BID #20 capsule 01/31/19 Unknown Rx cephALEXin [Keflex] 500 mg PO Q12HR 5 Days #10 cap 10/15/19 Unknown Rx Acetaminophen [Tylenol] 650 mg PO Q8HR PRN #20 capsule 06/04/20 Unknown Rx Metoclopramide [Reglan] 10 mg PO Q8HR PRN #12 tab 06/04/20 Unknown Rx diphenhydrAMINE [Benadryl CAP] 25 mg PO Q8HR PRN #20 capsule 06/04/20 Unknown Rx Allergies Allergy/AdvReac Type Severity Reaction Status Date / Time No Known Allergies Allergy Unverified 05/18/17 16:36 ED Review of Systems ROS: Stated complaint: 16 WEEKS PREG; HEADACHE; ABDOMINAL PAIN Other details as noted in HPI Comment: All other systems reviewed and negative ED Past Medical Hx - Past Medical History Previous Medical History?: Yes Hx Hypertension: No Hx Congestive Heart Failure: No Hx Diabetes: No Hx Deep Vein Thrombosis: No Hx Renal Disease: No Hx Sickle Cell Disease: No Hx Seizures: No Hx Asthma: Yes (LAST USED INHALER 05/2017) Hx COPD: No Hx HIV: No - Surgical History Past Surgical History?: Yes Hx Appendectomy: Yes - Social History Smoking Status: Never Smoker Substance Use Type: None - Medications Home Medications: Home Medications Medication Instructions Recorded Confirmed Last Taken Type Acetaminophen 1,000 mg PO QID #30 tablet 05/18/17 12/04/17 Unknown Rx Albuterol Mdi (or & Nicu Only) 2 puff IH QID PRN #1 inhalation 05/18/17 12/04/17 Unknown Rx [ProAir HFA Inhaler] Azithromycin [Zithromax Z-PURNIMA] 250 mg PO DAILY #6 tablet 05/18/17 12/04/17 Unknown Rx Loratadine 10 mg PO DAILY #30 tablet 05/18/17 12/04/17 Unknown Rx predniSONE [Deltasone] 40 mg PO QDAY #10 tab 05/18/17 12/04/17 Unknown Rx HYDROcodone/APAP 5-325 [[place] 1 each PO Q6HR PRN #20 tablet 12/13/17 Unknown Rx 5/325] Tizanidine HCl [Zanaflex 4mg CAP] 4 mg PO BID #20 capsule 01/31/19 Unknown Rx cephALEXin [Keflex] 500 mg PO Q12HR 5 Days #10 cap 10/15/19 Unknown Rx Acetaminophen [Tylenol] 650 mg PO Q8HR PRN #20 capsule 06/04/20 Unknown Rx Metoclopramide [Reglan] 10 mg PO Q8HR PRN #12 tab 06/04/20 Unknown Rx diphenhydrAMINE [Benadryl CAP] 25 mg PO Q8HR PRN #20 capsule 06/04/20 Unknown Rx ED Physical Exam - General Limitations: No Limitations General appearance: alert, in no apparent distress - Head Head exam: Present: atraumatic, normocephalic - Eye Eye exam: Present: normal appearance - ENT ENT exam: Present: mucous membranes moist - Respiratory Respiratory exam: Present: normal lung sounds bilaterally. Absent: respiratory distress, wheezes, rales, rhonchi, stridor, chest wall tenderness, accessory muscle use, decreased breath sounds, prolonged expiratory - Cardiovascular Cardiovascular Exam: Present: regular rate, normal rhythm, normal heart sounds. Absent: systolic murmur, diastolic murmur, rubs, gallop - GI/Abdominal GI/Abdominal exam: Present: soft, normal bowel sounds. Absent: distended, tenderness, guarding, rebound, rigid - Neurological Exam Neurological exam: Present: alert, oriented X3, CN II-XII intact, normal gait. Absent: motor sensory deficit - Psychiatric Psychiatric exam: Present: normal affect, normal mood - Skin Skin exam: Present: warm, dry, intact ED Course Vital Signs 06/04/20 16:40 Pulse Rate 97 H Respiratory 16 Rate Blood Pressure 137/82 [Right] O2 Sat by Pulse 100 Oximetry ED Medical Decision Making - Lab Data Result diagrams: 06/04/20 17:07 06/04/20 17:07 Lab Results 06/04/20 06/04/20 06/04/20 Range/Units 17:07 17:07 17:07 WBC 9.1 (4.5-11.0) K/mm3 RBC 4.19 (3.65-5.03) M/mm3 Hgb 10.6 (10.1-14.3) gm/dl Hct 32.3 (30.3-42.9) % MCV 77 L (79-97) fl MCH 25 L (28-32) pg MCHC 33 (30-34) % RDW 18.8 H (13.2-15.2) % Plt Count 377 (140-440) K/mm3 Lymph % (Auto) 25.2 (13.4-35.0) % [place] % (Auto) 8.5 H (0.0-7.3) % Eos % (Auto) 1.2 (0.0-4.3) % Baso % (Auto) 0.3 (0.0-1.8) % Lymph # (Auto) 2.3 (1.2-5.4) K/mm3 [place] # (Auto) 0.8 (0.0-0.8) K/mm3 Eos # (Auto) 0.1 (0.0-0.4) K/mm3 Baso # (Auto) 0.0 (0.0-0.1) K/mm3 Seg Neutrophils % 64.8 (40.0-70.0) % Seg Neutrophils # 5.9 (1.8-7.7) K/mm3 Sodium 132 L (137-145) mmol/L Potassium 4.2 (3.6-5.0) mmol/L Chloride 99.2 (98-107) mmol/L Carbon Dioxide 23 (22-30) mmol/L Anion Gap 14 mmol/L BUN 8 (7-17) mg/dL Creatinine 0.6 (0.6-1.2) mg/dL Estimated GFR > 60 ml/min BUN/Creatinine Ratio 13 % Glucose 72 (65-100) mg/dL Calcium 8.9 (8.4-10.2) mg/dL Total Bilirubin 0.40 (0.1-1.2) mg/dL AST 14 (5-40) units/L ALT 13 (7-56) units/L Alkaline Phosphatase 69 (35-129) units/L Total Protein 6.8 (6.3-8.2) g/dL Albumin 3.7 L (3.9-5) g/dL Albumin/Globulin Ratio 1.2 % HCG, Quant 51071 H (0-4) mIU/mL Urine Color (Yellow) Urine Turbidity (Clear) Urine pH (5.0-7.0) Ur Specific [place] (1.003-1.030) Urine Protein (Negative) mg/dL Urine Glucose (UA) (Negative) mg/dL Urine Ketones (Negative) mg/dL Urine Blood (Negative) Urine Nitrite (Negative) Urine Bilirubin (Negative) Urine Urobilinogen (<2.0) mg/dL Ur Leukocyte Esterase (Negative) Urine WBC (Auto) (0.0-6.0) /HPF Urine RBC (Auto) (0.0-6.0) /HPF U Epithel Cells (Auto) (0-13.0) /HPF Urine Bacteria (Auto) (Negative) /HPF 06/04/20 Range/Units 19:21 WBC (4.5-11.0) K/mm3 RBC (3.65-5.03) M/mm3 Hgb (10.1-14.3) gm/dl Hct (30.3-42.9) % MCV (79-97) fl MCH (28-32) pg MCHC (30-34) % RDW (13.2-15.2) % Plt Count (140-440) K/mm3 Lymph % (Auto) (13.4-35.0) % [place] % (Auto) (0.0-7.3) % Eos % (Auto) (0.0-4.3) % Baso % (Auto) (0.0-1.8) % Lymph # (Auto) (1.2-5.4) K/mm3 [place] # (Auto) (0.0-0.8) K/mm3 Eos # (Auto) (0.0-0.4) K/mm3 Baso # (Auto) (0.0-0.1) K/mm3 Seg Neutrophils % (40.0-70.0) % Seg Neutrophils # (1.8-7.7) K/mm3 Sodium (137-145) mmol/L Potassium (3.6-5.0) mmol/L Chloride (98-107) mmol/L Carbon Dioxide (22-30) mmol/L Anion Gap mmol/L BUN (7-17) mg/dL Creatinine (0.6-1.2) mg/dL Estimated GFR ml/min BUN/Creatinine Ratio % Glucose (65-100) mg/dL Calcium (8.4-10.2) mg/dL Total Bilirubin (0.1-1.2) mg/dL AST (5-40) units/L ALT (7-56) units/L Alkaline Phosphatase (35-129) units/L Total Protein (6.3-8.2) g/dL Albumin (3.9-5) g/dL Albumin/Globulin Ratio % HCG, Quant (0-4) mIU/mL Urine Color Yellow (Yellow) Urine Turbidity Clear (Clear) Urine pH 6.0 (5.0-7.0) Ur Specific [place] 1.015 (1.003-1.030) Urine Protein <15 mg/dl (Negative) mg/dL Urine Glucose (UA) Neg (Negative) mg/dL Urine Ketones Neg (Negative) mg/dL Urine Blood Neg (Negative) Urine Nitrite Neg (Negative) Urine Bilirubin Neg (Negative) Urine Urobilinogen 2.0 (<2.0) mg/dL Ur Leukocyte Esterase Neg (Negative) Urine WBC (Auto) 2.0 (0.0-6.0) /HPF Urine RBC (Auto) 1.0 (0.0-6.0) /HPF U Epithel Cells (Auto) 2.0 (0-13.0) /HPF Urine Bacteria (Auto) 1+ (Negative) /HPF Vital Signs (72 hours) 06/04/20 16:40 Pulse Rate 97 H Respiratory 16 Rate Blood Pressure 137/82 [Right] O2 Sat by Pulse 100 Oximetry - Radiology Data Radiology results: report reviewed Ordering Physician: MARISOL CAMPOVERDE Date of Service: 06/04/20 Procedure(s): US OB >= 14 wk fetus add gest Accession Number(s): [id number] cc: MARISOL CAMPOVERDE ULTRASOUND OBSTETRIC TWIN A Indication: PELVIC PAIN in Findings: There is a twin intrauterine . BPD = 4.7 cm = 20 weeks, 1 day(s). Head circumference = 17.4 cm = 19 weeks, 6 day(s). Abdominal circumference = 14.1 cm = 19 weeks, 2 day(s). Femur length = 2.9 cm = 18 weeks, 6 day(s). Overall estimated sonographic age = 19 weeks, 4 day(s). heart rate is 149 beats per minute. Estimated weight is 282 grams position is cephalic. Cervix appears closed. Cervical length is 4.1 cm. movement is present. Placenta is posterior and grade 0 . Amniotic fluid volume appears normal. Maternal adnexa appear normal. Impression: 1. Single living intrauterine with estimated sonographic age of 19 weeks, 4 day(s). 2. No sonographic abnormality identified. See below for evaluation for twin B ULTRASOUND OBSTETRIC TWIN B Indication: PELVIC PAIN Findings: There is a twin intrauterine . BPD = 4.7 cm = 19 weeks, 6 day(s). Head circumference = 16.8 cm = 19 weeks, 3 day(s). Abdominal circumference = 14.5 cm = 19 weeks, 6 day(s). Femur length = 3.2 cm = 19 weeks, 6 day(s). Overall estimated sonographic age = 19 weeks, 5 day(s). heart rate is 145 beats per minute. Estimated weight is 313 grams position is transverse. Cervix appears closed. movement is present. Placenta is posterior and grade 0 . Amniotic fluid volume appears normal. Maternal adnexa appear normal. Impression: 1. Single living intrauterine with estimated sonographic age of 19 weeks, 5 day(s). 2. No sonographic abnormality identified. Signer Name: Javi Munoz MD Signed: 06/04/2020 6:58 PM Workstation Name: [id number] Transcribed By: BC Dictated By: Javi Munoz MD Electronically Authenticated By: Javi Munoz MD Signed Date/Time: 06/04/201857 DD/ 46 TD/TT: - Medical Decision Making Patient is a 35-year-old female presents emergency room complaints of lower abdominal pain that began a couple of days ago. She states it feels like a cramping sensation. She states that she believes she is approximately 16 weeks based on her last menstrual cycle. She states that she has an upcoming appointment for [facility]PER[facility] but has not yet had an ultrasound performed. She states that she is also had a mild right-sided headache for the last 3 days. She has not been taking any medications for it. She denies any nausea, vomiting, diarrhea, fever, vaginal bleeding, abnormal vaginal discharge, urinary symptoms, vision changes, numbness, weakness, leg swelling, any other symptoms. To the past medical history of asthma. No allergies medications. /P: 4/A: 1. Vitals are stable. No abdominal tenderness on exam, no guarding, no rebound, no rigidity, normal bowel sounds, no peritoneal signs. [place] [address]. UA is within normal limits. OB ultrasound: 1. Single living intrauterine with estimated sonographic age of 19 weeks, 5 day(s). 2. No sonographic abnormality identified. 1. Single living intrauterine with estimated sonographic age of 19 weeks, 4 day(s). 2. No sonographic abnormality identified. See below for evaluation for twin B. Ultrasound shows evidence of twin gestation. Patient given 1 L normal saline, Reglan, Benadryl, Tylenol and symptoms improved and she was feeling much better and ready to go home. Discussed all results with patient and answered questions. Discussed the importance of [facility] SUPERVISOR follow-up. She states that she already has an appointment scheduled for 06/05/2020. Patient given prescription for Benadryl, Reglan, Tylenol. Advised patient Please take medication as prescribed as needed. Increase your fluid intake. Please take a vitamin [id number]. Please follow-up with [facility] SUPERVISOR, please keep your upcoming appointment with your [facility]UL[facility] SUPERVISOR. Return to emergency room for any new or worsening symptoms. Critical care attestation.: If time is entered above; I have spent that time in minutes in the direct care of this critically ill patient, excluding procedure time. ED Disposition Clinical Impression: Headache Abdominal pain Qualifiers: Abdominal location: lower abdomen, unspecified Qualified Code(s): R10.30 - Lower abdominal pain, unspecified Twin gestation in second trimester Qualifiers: Multiple gestation type: unspecified Qualified Code(s): O30.002 - Twin , unspecified number of placenta and unspecified number of amniotic sacs, second trimester Disposition: - TO HOME OR SELFCARE Is pt being admited?: No Does the pt Need Aspirin: No Condition: Stable Instructions: Multiple , Abdominal Pain (ED) Additional Instructions: Please take medication as prescribed as needed. Increase your fluid intake. Please take a vitamin [id number]. Please follow-up with [facility] SUPER[facility], please keep your upcoming appointment with your [facility] SUPERVISOR. Return to emergency room for any new or worsening symptoms. 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
[2020-06-04 20:50] LABS: Bacteria,Urine 1+ /HPF (Negative); Bilirubin,Urine NEG (Negative); Blood,Urine NEG (Negative); Color,Urine Yellow (Yellow); Protein,Urine <15 mg/dL mg/dL (Negative)
== END 2020-06-04 21:30 | disposition home or self-care (01) ==
LOC: ED 16:34
DX: O26.892 Other specified pregnancy related conditions, second trimester (principal); R51.9 Headache, unspecified; R10.30 Lower abdominal pain, unspecified; O30.002 Twin pregnancy, unspecified number of placenta and unspecified number of amniotic sacs, second trimester; J45.909 Unspecified asthma, uncomplicated; Z79.899 Other long term (current) drug therapy; Z3A.16 16 weeks gestation of pregnancy
CPT/HCPCS: 36415; 76805; 76810; 80053; 81001; 84702; 85025; 96361; 96374; 96375; 99284; J1200; J2765; J7030

== ENCOUNTER 2021-02-04 15:30 | Inpatient (IN) | payer MEDICAID ==
[2021-02-04] MEDS ORDERED: SODIUM CHLORIDE 0.9% 1000 ML 1,000 ML IV ONE (17:05)
[2021-02-04] MEDS ORDERED: ACETAMINOPHEN 500 MG TAB PO ONE (17:05)
--- NOTE | 2021-02-04 17:24 | Emergency Department Report ---
ED General Adult HPI - General Chief complaint: Dyspnea/Respdistress Stated complaint: TIGHTNESS CHEST/BACK/SIDE Time Seen by Provider: 02/04/21 17:00 Source: patient Mode of arrival: Ambulatory Limitations: No Limitations - History of Present Illness Initial comments: 35-year-old female patient with history of asthma presents to the emergency department with complaints of cough for 4 days and chest pain starting last night. Pain is constant and progressively worsening. No exacerbating or relieving factors identified. No medications prior to arrival. No known sick contacts. No current steroid or antibiotic use. Patient has not received her COVID-19 vaccination series. Patient states her symptoms are not consistent with prior asthma exacerbations. Denies headache, neck stiffness, wheezing, vomiting, diarrhea, abdominal pain. Denies all other complaints at this time. - Related Data Previous Rx's Medication Instructions Recorded Last Taken Type Albuterol Sulfate [Albuterol 0.63% 0.63 mg IH TID PRN #60 vial 02/06/21 Unknown Rx NEBS] guaiFENesin [Guaifenesin] 400 mg PO TID PRN #14 tablet 02/06/21 Unknown Rx levoFLOXacin [Levaquin] 750 mg PO QDAY #5 tablet 02/06/21 Unknown Rx traMADoL [Ultram 50 MG tab] 50 mg PO Q4HR PRN #14 tablet 02/06/21 Unknown Rx Allergies Allergy/AdvReac Type Severity Reaction Status Date / Time No Known Allergies Allergy Unverified 05/18/17 16:36 ED Review of Systems ROS: Stated complaint: TIGHTNESS CHEST/BACK/SIDE Other details as noted in HPI Other: GENERAL: Negative for fever, chills, weight change, anorexia, fatigue. ENT: Negative for ear pain, difficulty hearing, sore throat, nasal congestion, epistaxis. CARDIOVASCULAR: Positive for chest pain. PULMONARY: Positive for cough. GASTROINTESTINAL: Negative for abdominal pain, nausea, vomiting, diarrhea, constipation. MUSCULOSKELETAL: Negative for joint pain, joint swelling, myalgias, back pain, neck pain. NEUROLOGICAL: Negative for headache, seizure, syncope, paresthesias, weakness. INTEGUMENTARY: Negative for erythema, rash, diaphoresis, laceration, ecchymosis. HEMATOLOGICAL: Negative for hemoptysis, hematemesis, hematochezia, hematuria. PSYCHIATRIC: Negative for hallucinations, suicidal ideation, homicidal ideation, anxiety, depression. ED Past Medical Hx - Past Medical History Previous Medical History?: Yes Hx Hypertension: No Hx Congestive Heart Failure: No Hx Diabetes: No Hx Deep Vein Thrombosis: No Hx Renal Disease: No Hx Sickle Cell Disease: No Hx Seizures: No Hx Asthma: Yes (LAST USED INHALER 05/2017) Hx COPD: No Hx HIV: No - Surgical History Past Surgical History?: Yes Hx Appendectomy: Yes - Social History Smoking Status: Never Smoker Substance Use Type: None - Medications Home Medications: Home Medications Medication Instructions Recorded Confirmed Last Taken Type Albuterol Sulfate [Albuterol 0.63% 0.63 mg IH TID PRN #60 vial 02/06/21 Unknown Rx NEBS] guaiFENesin [Guaifenesin] 400 mg PO TID PRN #14 tablet 02/06/21 Unknown Rx levoFLOXacin [Levaquin] 750 mg PO QDAY #5 tablet 02/06/21 Unknown Rx traMADoL [Ultram 50 MG tab] 50 mg PO Q4HR PRN #14 tablet 02/06/21 Unknown Rx ED Physical Exam - General Limitations: No Limitations - Other Other exam information: General: Awake and alert. Appears uncomfortable. Head: Atraumatic, normocephalic. Eyes: EOMI. Pupils are equal and round. Normal sclera and conjunctiva. ENT: Oral mucosa is moist. Normal pharyngeal exam. Neck: Supple. No lymphadenopathy. Pulmonary: No respiratory distress. Clear to auscultation bilaterally. Cardiac: Tachycardic. Pulses are palpable and equal bilaterally. No lower extremity cyanosis or edema. Skin: Warm and dry. No rashes. Abdomen: Soft, non-tender, non-protuberant. No guarding, rigidity, or rebound. Bowel sounds are normal. No organomegaly or masses noted. Back: Normal alignment. No CVA tenderness. Extremities: Symmetrical. Full range of motion intact. Neurological: Alert and oriented, appropriately interactive, no focal deficits. Psych: Cooperative. Appropriate mood and affect. Speech is evenly metered. Thoughts are logically construed. ED Course Vital Signs 02/04/21 02/05/21 02/05/21 16:54 03:34 03:37 Temperature 101.9 F H 99.9 F H Pulse Rate 116 H 102 H Respiratory 24 20 Rate Blood Pressure 142/83 Blood Pressure 125/77 [Left] O2 Sat by Pulse 97 95 95 Oximetry 02/05/21 02/05/21 02/05/21 03:42 03:46 04:00 Temperature Pulse Rate Respiratory Rate Blood Pressure 125/77 125/77 Blood Pressure [Left] O2 Sat by Pulse 95 96 92 Oximetry 02/05/21 02/05/21 02/05/21 04:16 04:30 04:57 Temperature Pulse Rate Respiratory Rate Blood Pressure 125/73 125/73 125/77 Blood Pressure [Left] O2 Sat by Pulse 95 96 96 Oximetry 02/05/21 02/05/21 02/05/21 05:01 05:15 05:31 Temperature Pulse Rate Respiratory Rate Blood Pressure 125/77 125/73 125/73 Blood Pressure [Left] O2 Sat by Pulse 96 97 97 Oximetry 02/05/21 02/05/21 02/05/21 05:45 06:01 06:15 Temperature Pulse Rate Respiratory Rate Blood Pressure 125/73 116/63 116/63 Blood Pressure [Left] O2 Sat by Pulse 88 97 98 Oximetry 02/05/21 02/05/21 02/05/21 06:31 06:45 07:01 Temperature Pulse Rate Respiratory Rate Blood Pressure 116/63 116/63 105/84 Blood Pressure [Left] O2 Sat by Pulse 98 99 96 Oximetry 02/05/21 02/05/21 02/05/21 07:15 07:31 07:45 Temperature Pulse Rate Respiratory Rate Blood Pressure 105/84 105/84 116/63 Blood Pressure [Left] O2 Sat by Pulse 95 96 97 Oximetry 02/05/21 02/05/21 02/05/21 08:01 08:15 08:31 Temperature Pulse Rate Respiratory Rate Blood Pressure 129/72 129/72 129/72 Blood Pressure [Left] O2 Sat by Pulse 93 96 97 Oximetry 02/05/21 02/05/21 02/05/21 08:45 09:01 09:15 Temperature Pulse Rate Respiratory Rate Blood Pressure 129/72 127/68 127/68 Blood Pressure [Left] O2 Sat by Pulse 97 98 97 Oximetry 02/05/21 02/05/21 02/05/21 09:31 09:45 10:01 Temperature Pulse Rate Respiratory Rate Blood Pressure 127/68 127/68 112/64 Blood Pressure [Left] O2 Sat by Pulse 97 97 97 Oximetry 02/05/21 02/05/21 02/05/21 10:15 10:31 10:45 Temperature Pulse Rate 105 H 103 H Respiratory 28 H 31 H Rate Blood Pressure 112/64 112/64 112/64 Blood Pressure [Left] O2 Sat by Pulse 92 99 94 Oximetry 02/05/21 02/05/21 02/05/21 11:01 11:15 11:31 Temperature Pulse Rate 100 H 90 89 Respiratory 29 H 28 H 25 H Rate Blood Pressure 116/61 116/61 116/61 Blood Pressure [Left] O2 Sat by Pulse 95 95 95 Oximetry 02/05/21 02/05/21 02/05/21 11:45 12:01 12:15 Temperature Pulse Rate 85 80 80 Respiratory 24 23 22 Rate Blood Pressure 116/61 105/60 105/60 Blood Pressure [Left] O2 Sat by Pulse 93 95 95 Oximetry 02/05/21 02/05/21 02/05/21 12:31 12:45 13:01 Temperature Pulse Rate 76 95 H 86 Respiratory 25 H 23 27 H Rate Blood Pressure 105/60 105/60 117/70 Blood Pressure [Left] O2 Sat by Pulse 95 97 98 Oximetry 02/05/21 02/05/21 02/05/21 13:15 13:31 13:41 Temperature Pulse Rate 83 86 83 Respiratory 24 25 H 24 Rate Blood Pressure 117/70 117/70 117/70 Blood Pressure [Left] O2 Sat by Pulse 96 96 93 Oximetry ED Medical Decision Making - Lab Data Result diagrams: 02/06/21 06:55 02/06/21 06:55 - Radiology Data [facility] [address] [place] [address] XRay Report Signed Patient: CAROLINA CLARK MR#: [id number] 60 : 1985 Acct:[id number] Age/Sex: 35 / F ADM Date: 02/04/21 Loc: ED Attending Dr: Ordering Physician: MARISOL RODRIGUEZ Date of Service: 02/04/21 Procedure(s): XR chest routine 2V Accession Number(s): [id number] cc: MARISOL RODRIGUEZ Fluoro Time In Minutes: CHEST 2 VIEWS INDICATION: chest pain. COMPARISON: None. FINDINGS: Support devices: None. Heart: Within normal limits. Lungs/Pleura: Patchy infiltrate at the left mid/lower zone and at the right base. Possible small left effusion. IMPRESSION: 1. Bilateral pneumonia left greater than right. 2. Possible small left effusion. Signer Name: Chase Mc MD Signed: 02/04/2021 6:47 PM Workstation Name: [id number] Transcribed By: ES Dictated By: Chase Mc MD Electronically Authenticated By: Chase Mc MD Signed Date/Time: 02/04/211846 DD/ 45 TD/TT: - Medical Decision Making Differential diagnosis including but not limited to: sepsis, pneumonia, influenza, COVID-19, dehydration, electrolyte abnormality, asthma exacerbation On re-evaluation, patient continues to report pain and shortness of breath. Heart rate unchanged, patient remains tachycardic despite IV fluids and IV antibiotics. Chest x-ray shows bilateral pneumonia left greater than right and possible small left effusion. Labs unremarkable. Rapid flu test is negative. High clinical suspicion for concomitant COVID-19 infection. Case discussed with hospitalist, who agrees to admit. Patient expressed understanding and is agreeable to plan of care. Critical care attestation.: If time is entered above; I have spent that time in minutes in the direct care of this critically ill patient, excluding procedure time. ED Disposition Clinical Impression: Person under investigation for COVID-19 Pneumonia Qualifiers: Pneumonia type: due to unspecified organism Laterality: bilateral Lung lo cation: unspecified part of lung Qualified Code(s): J18.9 - Pneumonia, unspecified organism Disposition: ADMITTED INPATIENT Is pt being admited?: Yes Does the pt Need Aspirin: No Condition: Stable
[2021-02-04 17:58] LABS: Basophils % (Auto) 0.5 % (0.0-1.8); Eosinophils % (Auto) 0.1 % (0.0-4.3); Hematocrit 32.9 % (30.3-42.9); Hemoglobin 10.7 gm/dl (10.1-14.3); Lymphocytes # (Auto) 1.3 K/mm3 (1.2-5.4); Lymphocytes % (Auto) 13.6 % (13.4-35.0); Mean Corpuscular HGB Conc 33 % (30-34); Mean Corpuscular Volume 76 fl (79-97); Monocytes # (Auto) 0.9 K/mm3 (0.0-0.8); Monocytes % (Auto) 8.9 % (0.0-7.3); Platelet Count 597 K/mm3 (140-440); Red Blood Count 4.35 M/mm3 (3.65-5.03)
[2021-02-04 18:04] LABS: Alanine Aminotransferase 24 units/L (7-56); Albumin 3.8 g/dL (3.9-5); BUN/Creatinine Ratio 12; Blood Urea Nitrogen 7 mg/dL (7-17); Calcium 9.4 mg/dL (8.4-10.2); Hemolysis Index 1
[2021-02-04 18:09] LABS: Red Cell Distribution Width 20.8 % (13.2-15.2)
--- NOTE | 2021-02-04 18:51 | XRay Report ---
CHEST 2 VIEWS INDICATION: chest pain. COMPARISON: None. FINDINGS: Support devices: None. Heart: Within normal limits. Lungs/Pleura: Patchy infiltrate at the left mid/lower zone and at the right base. Possible small le ft effusion. IMPRESSION: 1. Bilateral pneumonia left greater than right. 2. Possible small left effusion. Signer Name: Chase Mc MD Signed: 02/04/2021 6:47 PM Workstation Name: [id number]
[2021-02-04] MEDS ORDERED: LIDOCAINE-MPF (1%) 10 MG/1 ML VIAL 5 ML INFILTRATI ONE (19:38)
[2021-02-04] MEDS ORDERED: AZITHROMYCIN/NS 500 MG/250 ML 500 MG/250 ML BAG IV ONE (19:38)
[2021-02-04] MEDS ORDERED: SODIUM CHLORIDE 0.9% 1000 ML 1,000 ML ONE (22:54)
[2021-02-04] MEDS ORDERED: KETOROLAC 30 MG/1 ML INJ IV ONE (23:00)
--- NOTE | 2021-02-05 03:15 | History and Physical Report ---
History of Present Illness Date of examination: 02/04/21 Date of admission: 02/05/21 Chief complaint: shortness of breath left upper back pain History of present illness: This is a 35-year-old female seen at bedside in the ED. Patient presents to ED with chief complaint of cough and shortness of breath plus chest pain that she says is ongoing for 4 days. Patient has a history of asthma. Pain is constant and progressively worsening. Chest x-ray is done patient has pneumonia. Patient has not received her COVID-19 vaccination series. Patient states her symptoms are not consistent with prior asthma exacerbations. Denies headache, neck stiffness, wheezing, vomiting, diarrhea, abdominal pain. Patient also denies tobacco use, chronic alcohol use, and drug use. I reviewed patient medical record, medication administration and vital signs. Will start patient on empiric antibiotic for pneumonia and as needed pain medicine. Troponin done negative. Past History Past Medical History: other (Asthma) Past Surgical History: Social history: lives with family, full code. denies: smoking, alcohol abuse, prescription drug abuse, IV drug use Family history: no significant family history Medications and Allergies Allergies Allergy/AdvReac Type Severity Reaction Status Date / Time No Known Allergies Allergy Unverified 05/18/17 16:36 Home Medications Medication Instructions Recorded Confirmed Last Taken Type Acetaminophen 1,000 mg PO QID #30 tablet 05/18/17 12/04/17 Unknown Rx Albuterol Mdi (or & Nicu Only) 2 puff IH QID PRN #1 inhalation 05/18/17 12/04/17 Unknown Rx [ProAir HFA Inhaler] Azithromycin [Zithromax Z-PURNIMA] 250 mg PO DAILY #6 tablet 05/18/17 12/04/17 Unknown Rx Loratadine 10 mg PO DAILY #30 tablet 05/18/17 12/04/17 Unknown Rx predniSONE [Deltasone] 40 mg PO QDAY #10 tab 05/18/17 12/04/17 Unknown Rx HYDROcodone/APAP 5-325 [[place] 1 each PO Q6HR PRN #20 tablet 12/13/17 Unknown Rx 5/325] Tizanidine HCl [Zanaflex 4mg CAP] 4 mg PO BID #20 capsule 01/31/19 Unknown Rx cephALEXin [Keflex] 500 mg PO Q12HR 5 Days #10 cap 10/15/19 Unknown Rx Acetaminophen [Tylenol] 650 mg PO Q8HR PRN #20 capsule 06/04/20 Unknown Rx Metoclopramide [Reglan] 10 mg PO Q8HR PRN #12 tab 06/04/20 Unknown Rx diphenhydrAMINE [Benadryl CAP] 25 mg PO Q8HR PRN #20 capsule 06/04/20 Unknown Rx Review of Systems Constitutional: fatigue, weakness Ears, nose, mouth and throat: no epistaxis, no bleeding gums Cardiovascular: chest pain, shortness of breath Respiratory: cough with sputum, shortness of breath, pleurisy, pain on inspiration, respiratory infections Gastrointestinal: no melena Integumentary: no rash, no pruritis, no redness Neurological: no head injury, no transient paralysis Psychiatric: anxiety Hematologic/Lymphatic: no easy bruising, no easy bleeding Allergic/Immunologic: no urticaria Exam - Constitutional Vitals: Temp Pulse Resp BP Pulse Ox 101.9 F H 116 H 24 142/83 97 02/04/21 16:54 02/04/21 16:54 02/04/21 16:54 02/04/21 16:54 02/04/21 16:54 General appearance: Present: mild distress, well-nourished - EENT Eyes: Present: PERRL ENT: hearing intact, clear oral mucosa - Neck Neck: Present: supple, normal ROM - Respiratory Respiratory effort: other (Shortness of breath) Respiratory: bilateral: CTA - Cardiovascular Heart Sounds: Present: S1 & S2. Absent: rub, click - Extremities Extremities: pulses symmetrical, No edema Peripheral Pulses: within normal limits - Abdominal General gastrointestinal: Present: soft, non-tender, non-distended, normal bowel sounds Female genitourinary: Present: normal - Integumentary Integumentary: Present: clear, warm, dry - Musculoskeletal Musculoskeletal: strength equal bilaterally, generalized weakness - Psychiatric Psychiatric: appropriate mood/affect, intact judgment & insight, cooperative - Neurologic Neurologic: CNII-XII intact, moves all extremities - Allied Health Allied health notes reviewed: nursing HEART Score - HEART Score Troponin: Troponin T < 0.010 ng/mL (0.00-0.029) 02/04/21 17:14 Results - Labs CBC & Chem 7: 02/04/21 17:14 02/04/21 17:14 Labs: Abnormal lab results 02/04/21 02/04/21 Range/Units 17:14 17:14 MCV 76 L (79-97) fl MCH 25 L (28-32) pg RDW 20.8 H (13.2-15.2) % Plt Count 597 H (140-440) K/mm3 [place] % (Auto) 8.9 H (0.0-7.3) % [place] # (Auto) 0.9 H (0.0-0.8) K/mm3 Seg Neutrophils % 76.9 H (40.0-70.0) % Sodium 136 L (137-145) mmol/L Potassium 3.5 L (3.6-5.0) mmol/L Carbon Dioxide 21 L (22-30) mmol/L Albumin 3.8 L (3.9-5) g/dL Assessment and Plan - Patient Problems (1) Pneumonia Current Visit: No Status: Acute Plan to address problem: Start empiric antibiotic azithromycin and Rocephin Oxygen supplement as needed and ABG (2) Shortness of breath Current Visit: No Status: Acute Plan to address problem: Most likely secondary to pneumonia Bronchodilators and oxygen supplement if needed (3) Thrombocytosis Current Visit: No Status: Acute Plan to address problem: Unknown cause probably reactive Monitor platelet level (4) Hypokalemia Current Visit: No Status: Acute Plan to address problem: replace potassium monitor electrolyte levels and replace as needed (5) DVT prophylaxis Current Visit: No Status: Acute Plan to address problem: Subcutaneous Lovenox
[2021-02-05] MEDS ORDERED: ALBUTEROL 2.5 MG/3 ML NEBU IH PRN (03:16)
[2021-02-05] MEDS ORDERED: ACETAMINOPHEN 325 MG TAB PO PRN (03:16)
[2021-02-05] MEDS ORDERED: NALOXONE 0.4 MG/1 ML INJ IV PRN (03:16)
[2021-02-05] MEDS ORDERED: SENNOSIDES 8.6 MG TAB PO PRN (03:16)
[2021-02-05] MEDS ORDERED: METOCLOPRAMIDE 10 MG/2 ML INJ IV PRN (03:16)
[2021-02-05] MEDS ORDERED: MAGNESIUM HYDROXIDE (MOM) ORAL LIQD UDC PO PRN (03:16)
[2021-02-05] MEDS ORDERED: MORPHINE 2 MG/1 ML INJ IV PRN (03:16)
[2021-02-05] MEDS ORDERED: ALUM-MAG HYDROXIDE-SIMETHICONE 200-200-20MG/5ML ORAL LIQD 30 ML PO PRN (03:16)
[2021-02-05] MEDS ORDERED: ONDANSETRON 4 MG/2 ML INJ IV PRN (03:16)
[2021-02-05] MEDS ORDERED: oxyCODONE /ACETAMINOPHEN 5-325MG TAB PO PRN (03:16)
[2021-02-05] MEDS ORDERED: hydrALAZINE 20 MG/1 ML INJ IV PRN (03:21)
[2021-02-05] MEDS ORDERED: ALBUTEROL 8.5 GM MDI INHALATION IH PRN (03:22)
[2021-02-05] MEDS ORDERED: SODIUM CHLORIDE 0.9% 1000 ML 1,000 ML IV SCH (03:30)
[2021-02-05] MEDS ORDERED: POTASSIUM CHLORIDE ER 20 MEQ TAB PO ONE ×2 (04:22→06:33)
[2021-02-05] MEDS: cefTRIAXone/NS 2 GM/100 ML 2 GM/100 ML BAG IV SCH (10:25)
[2021-02-05] MEDS: FAMOTIDINE 20 MG/2 ML INJ IV SCH ×2 (10:25→22:46)
[2021-02-05] MEDS: ENOXAPARIN 40 MG/0.4 ML INJ SUB-Q SCH (10:25)
[2021-02-05] MEDS: AZITHROMYCIN/NS 500 MG/250 ML 500 MG/250 ML BAG IV SCH (10:25)
[2021-02-05] MEDS: CETIRIZINE 10 MG TAB PO SCH (10:25)
--- NOTE | 2021-02-05 15:39 | Event Note ---
Date: 02/05/21 Patient seen and examined This is a 35-year-old female presented to ED with chief complaints of cough and shortness of breath for 4 days Patient is not vaccinated for COVID-19 CXR suggestive for bilateral pneumonia Continue empiric antibiotics and will also rule out COVID-19 Continue current management and plan as dictated in the HPI
[2021-02-05] MEDS ORDERED: traZODone 50 MG TAB PO SCH (22:00)
[2021-02-06 08:31] LABS: Alanine Aminotransferase 15 units/L (7-56); Albumin 3.1 g/dL (3.9-5); Blood Urea Nitrogen 7 mg/dL (7-17); Calcium 8.8 mg/dL (8.4-10.2); Hemolysis Index 20
[2021-02-06 08:33] LABS: BUN/Creatinine Ratio 12
--- NOTE | 2021-02-06 08:35 | Progress Note ---
Assessment and Plan Assessment and plan: (1) Pneumonia Current Visit: No Status: Acute Plan to address problem: Start empiric antibiotic azithromycin and Rocephin Oxygen supplement as needed and ABG (2) Shortness of breath Current Visit: No Status: Acute Plan to address problem: Most likely secondary to pneumonia Bronchodilators and oxygen supplement if needed (3) Thrombocytosis Current Visit: No Status: Acute Plan to address problem: Unknown cause probably reactive Monitor platelet level (4) Hypokalemia Current Visit: No Status: Acute Plan to address problem: replace potassium monitor electrolyte levels and replace as needed (5) DVT prophylaxis Current Visit: No Status: Acute Plan to address problem: Subcutaneous Lovenox 02/06/2021 -Patient is on IV antibiotics for pneumonia -We will check Covid test, collected this morning -Hypokalemia is corrected -Possible discharge if Covid test is negative with p.o. antibiotics History Interval history: Patient was seen and evaluated this morning Patient is on room air Hospitalist Physical - Physical exam Narrative exam: Not in cardiopulmonary distress. The patient appeared well nourished and normally developed. Vital signs as documented. Head exam is unremarkable. No scleral icterus . Neck is without jugular venous distension, thyromegaly, or carotid bruits. Lungs are clear to auscultation. Cardiac exam reveals regular rate and Rhythm. Abdominal exam reveals normal bowel sounds, nontender, no organomegaly. Extremities are nonedematous and both femoral and pedal pulses are normal. PUNCH HAND: Alert and oriented 3. No focal weakness. - Constitutional Vitals: Temp Pulse Resp BP Pulse Ox 99.6 F 102 H 18 100/59 94 02/06/21 04:36 02/06/21 04:36 02/06/21 04:36 02/06/21 04:36 02/06/21 04:36 General appearance: Present: mild distress, well-nourished HEART Score - HEART Score Troponin: Troponin T < 0.010 ng/mL (0.00-0.029) 02/04/21 17:14 Results - Labs CBC & Chem 7: 02/06/21 06:55 02/06/21 06:55 Labs: Laboratory Last Values WBC 9.5 K/mm3 (4.5-11.0) 02/04/21 17:14 RBC 4.35 M/mm3 (3.65-5.03) 02/04/21 17:14 Hgb 10.7 gm/dl (10.1-14.3) 02/04/21 17:14 Hct 32.9 % (30.3-42.9) 02/04/21 17:14 MCV 76 fl (79-97) L 02/04/21 17:14 MCH 25 pg (28-32) L 02/04/21 17:14 MCHC 33 % (30-34) 02/04/21 17:14 RDW 20.8 % (13.2-15.2) H 02/04/21 17:14 Plt Count 597 K/mm3 (140-440) H 02/04/21 17:14 Lymph % (Auto) 13.6 % (13.4-35.0) 02/04/21 17:14 [place] % (Auto) 8.9 % (0.0-7.3) H 02/04/21 17:14 Eos % (Auto) 0.1 % (0.0-4.3) 02/04/21 17:14 Baso % (Auto) 0.5 % (0.0-1.8) 02/04/21 17:14 Lymph # (Auto) 1.3 K/mm3 (1.2-5.4) 02/04/21 17:14 [place] # (Auto) 0.9 K/mm3 (0.0-0.8) H 02/04/21 17:14 Eos # (Auto) 0.0 K/mm3 (0.0-0.4) 02/04/21 17:14 Baso # (Auto) 0.0 K/mm3 (0.0-0.1) 02/04/21 17:14 Seg Neutrophils % 76.9 % (40.0-70.0) H 02/04/21 17:14 Seg Neutrophils # 7.3 K/mm3 (1.8-7.7) 02/04/21 17:14 Sodium 136 mmol/L (137-145) L 02/06/21 06:55 Potassium 4.0 mmol/L (3.6-5.0) 02/06/21 06:55 Chloride 102.8 mmol/L (98-107) 02/06/21 06:55 Carbon Dioxide 22 mmol/L (22-30) 02/06/21 06:55 Anion Gap 15 mmol/L 02/06/21 06:55 BUN 7 mg/dL (7-17) 02/06/21 06:55 Creatinine 0.6 mg/dL (0.6-1.2) 02/04/21 17:14 Estimated GFR > 60 ml/min 02/04/21 17:14 BUN/Creatinine Ratio 12 % 02/04/21 17:14 Glucose 84 mg/dL (65-100) 02/06/21 06:55 Hemoglobin A1c 5.6 % (4-6) 02/04/21 17:14 Lactic Acid 0.80 mmol/L (0.7-2.0) 02/04/21 17:14 Calcium 8.8 mg/dL (8.4-10.2) 02/06/21 06:55 Magnesium 1.80 mg/dL (1.7-2.3) 02/04/21 17:14 Total Bilirubin 0.60 mg/dL (0.1-1.2) 02/06/21 06:55 AST 13 units/L (5-40) 02/06/21 06:55 ALT 15 units/L (7-56) 02/06/21 06:55 Alkaline Phosphatase 66 units/L (35-129) 02/06/21 06:55 Troponin T < 0.010 ng/mL (0.00-0.029) 02/04/21 17:14 Total Protein 6.9 g/dL (6.3-8.2) 02/06/21 06:55 Albumin 3.1 g/dL (3.9-5) L 02/06/21 06:55 Albumin/Globulin Ratio 0.8 % 02/06/21 06:55 HCG, Qual Negative (Negative) 02/04/21 17:14 Influenza A (Rapid) Negative (Negative) 02/04/21 Unknown Influenza B (Rapid) Negative (Negative) 02/04/21 Unknown Microbiology: Microbiology 02/04/21 17:20 Peripheral/Venous Blood Culture - Preliminary NO GROWTH AFTER 24 HOURS 02/04/21 17:14 Peripheral/Venous Blood Culture - Preliminary NO GROWTH AFTER 24 HOURS Jennings/IV: Voiding Method Toilet Active Medications - Current Medications Current Medications: Generic Name Dose Route Start Last Admin Trade Name Freq PRN Reason Stop Dose Admin Acetaminophen 650 mg 02/05/21 03:16 Acetaminophen 325 Mg Tab PO Q4H PRN Pain MILD(1-3)/Fever >100.5/RASCON Al Hydrox/Mg Hydrox/Simethicone 30 ml 02/05/21 03:16 Alum-Mag Hydroxide-Simethicone [phone]/5ml Oral Liqd 30 Ml PO Q4H PRN Indigestion Albuterol 2.5 mg 02/05/21 03:16 Albuterol 2.5 Mg/3 Ml Nebu IH Q4HRT PRN Shortness Of Breath Cetirizine HCl 10 mg 02/05/21 10:00 02/05/21 10:25 Cetirizine 10 Mg Tab PO Not Given DAILY JR Enoxaparin Sodium 40 mg 02/05/21 10:00 02/05/21 10:25 Enoxaparin 40 Mg/0.4 Ml Inj SUB-Q 40 mg QDAY JR Administration Famotidine 20 mg 02/05/21 10:00 02/05/21 22:46 Famotidine 20 Mg/2 Ml Inj IV 20 mg BID JR Administration Hydralazine HCl 5 mg 02/05/21 03:21 Hydralazine 20 Mg/1 Ml Inj IV Q4H PRN Hypertension Sodium Chloride 1,000 mls @ 42 mls/hr 02/05/21 03:30 Nacl 0.9% 1000 Ml IV DIRECT JR Ceftriaxone Sodium 2 gm in 100 mls @ 200 mls/hr 02/05/21 10:00 02/05/21 10:25 Rocephin/Ns 2 Gm/100 Ml IV 200 mls/hr Q24HR JR Administration Protocol Azithromycin 500 mg in 250 mls @ 250 mls/hr 02/05/21 10:00 02/05/21 10:25 Zithromax/Ns IV 250 mls/hr Q24HR JR Administration Protocol Magnesium Hydroxide 30 ml 02/05/21 03:16 Magnesium Hydroxide (Mom) Oral Liqd Udc PO Q4H PRN Constipation Metoclopramide HCl 10 mg 02/05/21 03:16 Metoclopramide 10 Mg/2 Ml Inj IV Q6H PRN Nausea And Vomiting Morphine Sulfate 2 mg 02/05/21 03:16 Morphine 2 Mg/1 Ml Inj IV Q4H PRN Pain, Moderate (4-6) Naloxone HCl 0.1 mg 02/05/21 03:16 Naloxone 0.4 Mg/1 Ml Inj IV Q2MIN PRN Res Rate </= 8 or 02 SAT < 92% Ondansetron HCl 4 mg 02/05/21 03:16 Ondansetron 4 Mg/2 Ml Inj IV Q8H PRN Nausea And Vomiting Oxycodone/Acetaminophen 1 tab 02/05/21 03:16 Oxycodone /Acetaminophen 5-325mg Tab PO Q6H PRN Pain, Moderate (4-6) Senna 8.6 mg 02/05/21 03:16 Sennosides 8.6 Mg Tab PO Q12HR PRN Constipation Sodium Chloride 10 ml 02/05/21 10:00 02/05/21 22:46 Sodium Chloride 0.9% 10 Ml Flush Syringe IV 10 ml BID JR Administration Sodium Chloride 10 ml 02/05/21 03:16 Sodium Chloride 0.9% 10 Ml Flush Syringe IV PRN PRN LINE FLUSH Trazodone HCl 50 mg 02/05/21 22:00 02/05/21 22:46 Trazodone 50 Mg Tab PO 50 mg QHS JR Administration
[2021-02-06 10:19] LABS: Basophils # (Auto) 0.1 K/mm3 (0.0-0.1); Basophils % (Auto) 0.9 % (0.0-1.8); Eosinophils # (Auto) 0.1 K/mm3 (0.0-0.4); Eosinophils % (Auto) 0.8 % (0.0-4.3); Hematocrit 27.3 % (30.3-42.9); Hemoglobin 9.5 gm/dl (10.1-14.3); Lymphocytes # (Auto) 1.9 K/mm3 (1.2-5.4); Lymphocytes % (Auto) 22.5 % (13.4-35.0); Mean Corpuscular HGB Conc 35 % (30-34); Mean Corpuscular Volume 74 fl (79-97); Monocytes # (Auto) 1.1 K/mm3 (0.0-0.8); Platelet Count 537 K/mm3 (140-440); Red Blood Count 3.68 M/mm3 (3.65-5.03)
[2021-02-06] MEDS: AZITHROMYCIN/NS 500 MG/250 ML 500 MG/250 ML BAG IV SCH (10:25)
[2021-02-06] MEDS: FAMOTIDINE 20 MG/2 ML INJ IV SCH (10:25)
[2021-02-06] MEDS: ENOXAPARIN 40 MG/0.4 ML INJ SUB-Q SCH (10:25)
[2021-02-06] MEDS: CETIRIZINE 10 MG TAB PO SCH (10:25)
[2021-02-06] MEDS: cefTRIAXone/NS 2 GM/100 ML 2 GM/100 ML BAG IV SCH (10:25)
[2021-02-06 10:26] LABS: Red Cell Distribution Width 20.6 % (13.2-15.2)
--- NOTE | 2021-02-06 13:20 | Discharge Summary ---
Providers - Providers Date of Admission: 02/05/21 03:16 Date of discharge: 02/06/21 Attending physician: EMILY LOVING MD [facility] Reason for admission: Pneumonia Condition: Stable Hospital course: This is a 35-year-old female seen at bedside in the ED. Patient presents to ED with chief complaint of cough and shortness of breath plus chest pain that she says is ongoing for 4 days. Patient has a history of asthma. Pain is constant and progressively worsening. Chest x-ray is done patient has pneumonia. Patient has not received her COVID-19 vaccination series. Patient states her symptoms are not consistent with prior asthma exacerbations. Denies headache, neck stiffness, wheezing, vomiting, diarrhea, abdominal pain. Patient also denies tobacco use, chronic alcohol use, and drug use. I reviewed patient medical record, medication administration and vital signs. Will start patient on empiric antibiotic for pneumonia and as needed pain medicine. Troponin done negative. Hospital course (1) Pneumonia Current Visit: No Status: Acute Plan to address problem: Start empiric antibiotic azithromycin and Rocephin Oxygen supplement as needed and ABG (2) Shortness of breath Current Visit: No Status: Acute Plan to address problem: Most likely secondary to pneumonia Bronchodilators and oxygen supplement if needed (3) Thrombocytosis Current Visit: No Status: Acute Plan to address problem: Unknown cause probably reactive Monitor platelet level (4) Hypokalemia Current Visit: No Status: Acute Plan to address problem: replace potassium monitor electrolyte levels and replace as needed (5) DVT prophylaxis Current Visit: No Status: Acute Plan to address problem: Subcutaneous Lovenox 02/06/2021 -Patient is on IV antibiotics for pneumonia -We will check Covid test, collected this morning -Hypokalemia is corrected -Possible discharge after Covid test is done with p.o. antibiotics Disposition: 01 HOME / SELF CARE / HOMELESS Final Discharge Diagnosis (Prints w/discharge instructions): Pneumonia. PUI Time spent for discharge: 31-minutes - Discharge Diagnoses (1) Hypokalemia Status: Acute (2) Pneumonia Status: Acute (3) Shortness of breath Status: Acute (4) Thrombocytosis Status: Acute Core Measure Documentation - Palliative Care Palliative Care/ Comfort Measures: Not Applicable - Core Measures Any of the following diagnoses?: none Exam - Physical Exam Narrative exam: Not in cardiopulmonary distress. The patient appeared well nourished and normally developed. Vital signs as documented. Head exam is unremarkable. No scleral icterus . Neck is without jugular venous distension, thyromegaly, or carotid bruits. Lungs are clear to auscultation. Cardiac exam reveals regular rate and Rhythm. Abdominal exam reveals normal bowel sounds, nontender, no organomegaly. Extremities are nonedematous and both femoral and pedal pulses are normal. [place] BOX TOE: Alert and oriented 3. No focal weakness. - Constitutional Vitals: Temp Pulse Resp BP Pulse Ox 99.6 F 102 H 18 100/59 94 02/06/21 04:36 02/06/21 04:36 02/06/21 04:36 02/06/21 04:36 02/06/21 04:36 Plan Activity: no restrictions Weight Bearing Status: Full Weight Bearing Diet: regular Follow up with: SAMMI DOMÍNGUEZ MD [Primary Care Provider] - 7 Days Prescriptions: guaiFENesin [Guaifenesin] 400 mg PO TID PRN #14 tablet PRN Reason: Cough levoFLOXacin [Levaquin] 750 mg PO QDAY #5 tablet traMADoL [Ultram 50 MG tab] 50 mg PO Q4HR PRN #14 tablet PRN Reason: Pain
[2021-02-06 14:20] VITALS: BP 155/110
[2021-02-06] MEDS ORDERED: FAMOTIDINE 20 MG TAB PO SCH (22:00)
== END 2021-02-06 19:25 | disposition home or self-care (01) | DRG 195 ==
LOC: ED 15:30 → 4A 02-05 03:16 → 3A 02-05 09:55
PROVIDERS: ADMIT Hospitalist; ATTEND Internal Medicine
DX: J18.9 Pneumonia, unspecified organism (principal); J45.909 Unspecified asthma, uncomplicated; E87.6 Hypokalemia; D47.3 Essential (hemorrhagic) thrombocythemia; Z20.822 Contact with and (suspected) exposure to COVID-19
CPT/HCPCS: 36415; 71046; 80053; 82140; 83036; 83735; 84145; 84484; 84703; 85025; 87040; 87400; 87641; G0378; J0456; J0696; J1650; J7030; U0003